=== PATIENT | male | born 1955 | race Caucasian/White ===

== ENCOUNTER 2018-05-30 10:01 | Emergency (ER) | payer OTHER ==
[2018-05-30 10:58] LABS: Absolute Lymphocytes (CBC) 3.5 K/uL (0.7-4.9); Absolute Monocytes 0.8 K/uL (0.1-1.3); Absolute Neutrophil 9.2 K/uL (1.8-8.0); Basophils % 0.8 % (0-1.3); Eosinophils % 1.2 % (0-4.4); Lymphocytes % 25.3 % (15.3-44.8); MCH 30.4 pg (27.0-35.0); MPV 8.8 fL (7.6-11.3); Monocytes % 5.8 % (3.3-12.3); RBC Red Blood Cell Count 5.52 M/uL (4.33-5.43)
[2018-05-30 11:03] LABS: Protime INR 1.05
[2018-05-30] MEDS ORDERED: ASPIRIN 81 MG CHEWABLE TABLET ONE (11:04)
[2018-05-30 11:20] LABS: Urine Blood TRACE (NEG); Urine Glucose NEGATIVE (NEG); Urine Protein 1+ (NEG); Urine pH 5.5 (5.0-7.0)
[2018-05-30 11:24] LABS: ALT/SGPT 33 U/L (12-78); AST/SGOT 23 U/L (15-37); Alkaline Phosphatase 75 U/L (45-117); BUN Blood Urea Nitrogen 15 mg/dL (7-18); Bicarbonate 27 mmol/L (21-32); Bilirubin Direct 0.1 mg/dL (0-0.2); Bilirubin Total 0.5 mg/dL (0.2-1.0); Glucose Level 108 mg/dL (74-106); Magnesium 2.4 mg/dL (1.8-2.4); NT PRO-BNP 11 pg/mL (<125); Potassium 3.7 mmol/L (3.5-5.1); Protein, Total 7.6 g/dL (6.4-8.2); Sodium Level 140 mmol/L (136-145); Troponin (Emerg Dept Use Only) < 0.02 ng/mL (0.0-0.045)
--- NOTE | 2018-05-30 12:24 | RAD REPORT ---
EXAM DESCRIPTION: RAD - Chest Single View - 05/30/2018 11:27 am CLINICAL HISTORY: CHEST PAIN Chest pain. COMPARISON: CHEST SINGLE VIEW dated 03/19/2009 FINDINGS: Portable technique limits examination quality. The lungs are grossly clear. The heart is normal in size. No displaced fractures. IMPRESSION: No acute intrathoracic process suspected.
--- NOTE | 2018-05-30 12:24 | EDPHYS ---
Physician Documentation [facility] Name: Hamilton Phan Age: 62 yrs Sex: Male : 1955 Arrival Date: 05/30/2018 Time: 10:02 Bed 15 Private MD: Yosi Quintero ED Physician Pavan Mcarthur HPI: 05/30 10:52 This 62 yrs old Male presents to ER via Wheelchair with complaints of Chest ma2 Tightness, Weakness, Headache. 10:52 The patient or guardian reports chest pain that is located primarily in the substernal ma2 area. Onset: suddenly, 1 hour(s) ago. The pain does not radiate. The chest pain is described as a heaviness, squeezing. Duration: The patient or guardian reports a single episode. Severity of pain: At its worst the pain was moderate in the emergency department the pain is unchanged. The patient has experienced a previous episode. Historical: - Allergies: 10:11 Bees; aj1 10:11 Wasps; aj1 - Home Meds: 10:11 blood pressure medication [Active]; aj1 - PMHx: 10:11 Hypertension; Hypothyroidism; aj1 - PSHx: 10:11 None; aj1 - Immunization history:: Flu vaccine is not up to date. - Social history:: Smoking status: Patient uses tobacco products, smokes one-half pack cigarettes per day, Patient/guardian denies using alcohol, street drugs, The patient lives with family. - Ebola Screening: : Patient denies travel to an Ebola-affected area in the 21 days before illness onset. - Family history:: not pertinent, pertinent for. ROS: 10:52 Constitutional: Negative for fever, chills, and weight loss, Respiratory: Negative for ma2 shortness of breath, cough, wheezing, and pleuritic chest pain, Back: Negative for injury and pain, MS/Extremity: Negative for injury and deformity. 10:52 Cardiovascular: Positive for chest pain, Negative for edema, palpitations, paroxysmal nocturnal dyspnea. Exam: 10:52 Constitutional: This is a well developed, well nourished patient who is awake, alert, ma2 and in no acute distress. Head/Face: Normocephalic, atraumatic. Chest/axilla: Normal chest wall appearance and motion. Nontender with no deformity. No lesions are appreciated. Cardiovascular: Regular rate and rhythm with a normal S1 and S2. No gallops, murmurs, or rubs. Normal PMI, no JVD. No pulse deficits. Respiratory: Lungs have equal breath sounds bilaterally, clear to auscultation and percussion. No rales, rhonchi or wheezes noted. No increased work of breathing, no retractions or nasal flaring. Abdomen/GI: Soft, non-tender, with normal bowel sounds. No distension or tympany. No guarding or rebound. No evidence of tenderness throughout. Vital Signs: 10:11 BP 129 / 99; Pulse 78; Resp 18; Temp 97.5; Pulse Ox 97% on R/A; Weight 104.33 kg (R); aj1 Height 6 ft. 4 in. (193.04 cm) (R); Pain 3/10; 11:03 BP 117 / 82; Pulse 66; Resp 14; Pulse Ox 100% ; Pain 6/10; ch 11:36 BP 114 / 81; Pulse 62; Resp 18; Temp 97.7; Pulse Ox 99% on R/A; Pain 3/10; ch 13:21 BP 115 / 92; Pulse 63; Resp 14; Temp 97.9; Pulse Ox 99% on R/A; Pain 3/10; ch 14:02 BP 129 / 90 Supine; Pulse 60; Resp 17; Pulse Ox 97% on R/A; mh5 14:04 BP 136 / 99 Sitting; Pulse 83; Resp 15; Pulse Ox 98% on R/A; mh5 14:06 BP 139 / 99 Standing; Pulse 62; Resp 18; Pulse Ox 97% on R/A; mh5 14:34 BP 124 / 62; Pulse 65; Resp 14; Temp 98.3; Pulse Ox 99% on R/A; Pain 0/10; ch 10:11 Body Mass Index 28.00 (104.33 kg, 193.04 cm) aj1 MDM: 10:18 Patient medically screened. ma2 10:52 Differential diagnosis: acute pericarditis, coronary artery disease chest wall pain, ma2 congestive heart failure stable angina. 12:22 HEART Score: Total Score =. The patient was given aspirin in the Emergency Department. ma2 WAYLON Risk Score: TOTAL SCORE = 3. Data reviewed: vital signs, nurses notes. Counseling: I had a detailed discussion with the patient and/or guardian regarding: the historical points, exam findings, and any diagnostic results supporting the discharge/admit diagnosis, the presence of at least one elevated blood pressure reading (>120/80) during this emergency department visit, the need for further work-up and treatment in the hospital. ED course: accepted by dr. lovell . 14:20 ED course: patient is seen by Dr. Villalobos kettle girl and dr. lovell hospitalist and ma both recommend discharging him home, with f/u with dr. villalobos as he had normal stress test 3 days ago . 05/30 10:31 Order name: Basic Metabolic Panel; Complete Time: 12:10 ma2 05/30 10:31 Order name: CBC with Diff; Complete Time: 12:10 ma2 05/30 10:31 Order name: LFT's; Complete Time: 12:10 ma2 05/30 10:31 Order name: Magnesium; Complete Time: 12:10 ma2 05/30 10:31 Order name: NT PRO-BNP; Complete Time: 12:10 ma2 05/30 10:31 Order name: PT-INR; Complete Time: 12:10 ma2 05/30 10:31 Order name: Troponin (emerg Dept Use Only); Complete Time: 12:10 ma2 05/30 10:31 Order name: XRAY Chest (1 view); Complete Time: 12:52 ma2 05/30 10:31 Order name: EKG; Complete Time: 10:32 ma2 05/30 11:05 Order name: Urine Dipstick--Ancillary (enter results) bd 05/30 11:05 Order name: Urine Dipstick-Ancillary; Complete Time: 12:10 EDMS 05/30 10:31 Order name: Cardiac monitoring; Complete Time: 11:03 ma2 05/30 10:31 Order name: EKG - Nurse/Tech; Complete Time: 11:03 ma2 05/30 10:31 Order name: IV Saline Lock; Complete Time: 11:03 ma2 05/30 10:31 Order name: Labs collected and sent; Complete Time: 11:03 ma2 05/30 10:31 Order name: O2 Per Protocol; Complete Time: 11:03 ma2 05/30 10:31 Order name: O2 Sat Monitoring; Complete Time: 11:03 ma2 05/30 14:02 Order name: Orthostatic Blood Pressure; Complete Time: 14:21 Administered Medications: 10:45 Drug: Aspirin Chewable Tablet 324 mg Route: PO; 11:08 Follow up: Response: No adverse reaction; Marked relief of symptoms ch 12:56 Drug: Tylenol 1000 mg Route: PO; ch 12:56 Follow up: Response: No adverse reaction; Marked relief of symptoms 13:19 Drug: NS 0.9% 1000 ml Route: IV; Rate: 1 bolus; Site: right forearm; 14:02 Follow up: IV Status: Completed infusion; IV Intake: 1000ml Disposition: 05/30/18 14:22 Discharged to Home. Impression: Chest pain, unspecified. - Condition is Stable. - Medication Reconciliation Form, Thank You Letter, Antibiotic Education, Prescription Opioid Use form. - Follow up: Private Physician; When: Tomorrow; Reason: Continuance of care. Signatures: Dispatcher [employer] EDMS Stephanie Mock RN RN Meghan Wong RN RN 1 Ambar Medina RN RN dw Alzahri, Mohammad, MD MD ma2 Corrections: (The following items were deleted from the chart) 12:45 12:23 Hospitalization Ordered by Malathi Lovell MD for Observation. Preliminary diagnosis dw is Chest pain, unspecified. Bed requested for Telemetry/MedSurg (observation). Status is Observation. Condition is Stable. Problem is new. Symptoms are unchanged. UTI on Admission? No. ma2 14:22 12:45 05/30/2018 12:23 Hospitalization Ordered by Malathi Lovell MD for Observation. ma2 Preliminary diagnosis is Chest pain, unspecified. Bed requested for Telemetry/MedSurg (observation). Status is Observation. Condition is Stable. Problem is new. Symptoms are unchanged. UTI on Admission? No. dw 14:37 14:22 05/30/2018 14:22 Discharged to Home. Impression: Chest pain, unspecified. Condition is Stable. Forms are Medication Reconciliation Form, Thank You Letter, Antibiotic Education, Prescription Opioid Use. Follow up: Private Physician; When: Tomorrow; Reason: Continuance of care. ma2
--- NOTE | 2018-05-30 12:24 | ER ---
Nurse's Notes [facility] Name: Hamilton Phan Age: 62 yrs Sex: Male : 1955 Arrival Date: 05/30/2018 Time: 10:02 Bed 15 Private MD: Yosi Quintero Diagnosis: Chest pain, unspecified Presentation: 05/30 10:06 Presenting complaint: Patient states: He was at work this morning and he started aj1 feeling hot, sweating profusely, feeling light-headed, nauseated., chest tightness and headache. He took his blood pressure and it was 100/62, that was an hour ago, but he isn't feeling any better. Denies SOB. Transition of care: patient was not received from another setting of care. Onset of symptoms was May 30, 2018 at 09:00. Risk Assessment: Do you want to hurt yourself or someone else? Patient reports no desire to harm self or others. Initial Sepsis Screen: Does the patient meet any 2 criteria? No. Patient's initial sepsis screen is negative. Does the patient have a suspected source of infection? No. Patient's initial sepsis screen is negative. Care prior to arrival: None. 10:06 Method Of Arrival: Wheelchair aj1 10:06 Acuity: RONA 3 aj1 Triage Assessment: 10:11 General: Appears in no apparent distress. comfortable, Behavior is calm, cooperative, aj1 appropriate for age. Pain: Complains of pain in forehead and chest Pain currently is 3 out of 10 on a pain scale. Neuro: Level of Consciousness is awake, alert, obeys commands. Neuro: Reports headache. Cardiovascular: Patient's skin is warm and dry. Cardiovascular: Reports chest pain, diaphoresis, lightheadedness, nausea. Respiratory: Airway is patent Respiratory effort is even, unlabored, Respiratory pattern is regular, symmetrical. Historical: - Allergies: 10:11 Bees; aj1 10:11 Wasps; aj1 - Home Meds: 10:11 blood pressure medication [Active]; aj1 - PMHx: 10:11 Hypertension; Hypothyroidism; aj1 - PSHx: 10:11 None; aj1 - Immunization history:: Flu vaccine is not up to date. - Social history:: Smoking status: Patient uses tobacco products, smokes one-half pack cigarettes per day, Patient/guardian denies using alcohol, street drugs, The patient lives with family. - Ebola Screening: : Patient denies travel to an Ebola-affected area in the 21 days before illness onset. - Family history:: not pertinent, pertinent for. Screenin:03 Abuse screen: Denies threats or abuse. Denies injuries from another. Nutritional ch screening: No deficits noted. Tuberculosis screening: No symptoms or risk factors identified. Patient has been NPO before screening. The patient is alert, able to follow commands. The patient does not exhibit slurred or garbled speech The patient is not exhibiting difficulty speaking. The patient does not exhibit difficulty understanding words. The patient is able to swallow own secretions with no drooling or need for suction. Patient tolerated one teaspoon of water. No drooling, immediate coughing, gurgling, or clearing of the throat was noted. The patient tolerated 90mL of water. No drooling, immediate coughing, gurgling, or clearing of the throat was noted. The patient passed the bedside swallow screening. Oral medications may be given as ordered. Contact Physician for further diet orders. Fall Risk None identified. Assessment: 11:03 Reassessment: Patient appears in no apparent distress at this time. Patient and/or ch family updated on plan of care and expected duration. Pain level reassessed. Patient is alert, oriented x 3, equal unlabored respirations, skin warm/dry/pink. General: Appears in no apparent distress. comfortable, Behavior is calm, cooperative, appropriate for age. Pain: Complains of pain in top of head, forehead and chest Pain does not radiate. Pain currently is 7 out of 10 on a pain scale. Pain began suddenly. Neuro: No deficits noted. Level of Consciousness is awake, alert, obeys commands, Oriented to person, place, time, situation, Heating Equipment Installer are equal bilaterally Moves all extremities. Full function Gait is steady, Speech is normal, Facial symmetry appears normal, Facial symmetry: tongue is midline, Pupils are PERRLA, Reports dizziness, headache. Cardiovascular: Reports chest pain, Heart tones S1 S2 present Capillary refill < 3 seconds in bilateral fingers toes Clubbing of nail beds is absent Pulses are all present. Edema is absent. Rhythm is regular. Respiratory: Airway is patent Respiratory effort is even, unlabored, Breath sounds are clear bilaterally. GI: No signs and/or symptoms were reported involving the gastrointestinal system. : No signs and/or symptoms were reported regarding the genitourinary system. Derm: Skin is pink, warm \T\ dry. 11:36 Reassessment: Patient appears in no apparent distress at this time. Patient and/or ch family updated on plan of care and expected duration. Pain level reassessed. Patient is alert, oriented x 3, equal unlabored respirations, skin warm/dry/pink. pt states his headache is improved Patient states feeling better. Patient states symptoms have improved. 12:30 Reassessment: Patient appears in no apparent distress at this time. Patient and/or ch family updated on plan of care and expected duration. Pain level reassessed. Patient is alert, oriented x 3, equal unlabored respirations, skin warm/dry/pink. pt states his head still hurts, mild headache. pt medicated per odres. 13:19 Reassessment: DR. lovell speaks with pt, states to give pt one liter ns bolus, then ch check orthostatics. pt medicated per orders. pt may no be admitted, awaiting final physician decision. 14:02 Reassessment: Patient appears in no apparent distress at this time. Patient and/or ch family updated on plan of care and expected duration. Pain level reassessed. Patient is alert, oriented x 3, equal unlabored respirations, skin warm/dry/pink. 14:34 Reassessment: Patient appears in no apparent distress at this time. Patient and/or ch family updated on plan of care and expected duration. Pain level reassessed. Patient is alert, oriented x 3, equal unlabored respirations, skin warm/dry/pink. Patient states feeling better. Patient states symptoms have improved. Vital Signs: 10:11 BP 129 / 99; Pulse 78; Resp 18; Temp 97.5; Pulse Ox 97% on R/A; Weight 104.33 kg (R); aj1 Height 6 ft. 4 in. (193.04 cm) (R); Pain 3/10; 11:03 BP 117 / 82; Pulse 66; Resp 14; Pulse Ox 100% ; Pain 6/10; ch 11:36 BP 114 / 81; Pulse 62; Resp 18; Temp 97.7; Pulse Ox 99% on R/A; Pain 3/10; ch 13:21 BP 115 / 92; Pulse 63; Resp 14; Temp 97.9; Pulse Ox 99% on R/A; Pain 3/10; ch 14:02 BP 129 / 90 Supine; Pulse 60; Resp 17; Pulse Ox 97% on R/A; mh5 14:04 BP 136 / 99 Sitting; Pulse 83; Resp 15; Pulse Ox 98% on R/A; mh5 14:06 BP 139 / 99 Standing; Pulse 62; Resp 18; Pulse Ox 97% on R/A; mh5 14:34 BP 124 / 62; Pulse 65; Resp 14; Temp 98.3; Pulse Ox 99% on R/A; Pain 0/10; ch 10:11 Body Mass Index 28.00 (104.33 kg, 193.04 cm) aj1 ED Course: 10:02 Patient arrived in ED. rg4 10:02 Yosi Quintero MD is Private Physician. rg4 10:10 Triage completed. aj1 10:11 Arm band placed on Patient placed in an exam room. aj1 10:18 Pavan Mcarthur MD is Attending Physician. ma2 10:32 Stephanie Mock, GELACIO is Primary Nurse. ch 11:03 No apparent distress. Resting quietly. ch 11:03 Patient has correct armband on for positive identification. Placed in gown. Bed in low ch position. Call light in reach. Side rails up X 1. gambling monitor on. Pulse ox on. NIBP on. Door closed. Noise minimized. Lights dimmed. Warm blanket given. 11:03 No provider procedures requiring assistance completed. Missed attempt(s): 22 gauge in ch left antecubital area. Bleeding controlled, band aid applied, catheter tip intact. Patient maintains SpO2 saturation greater than 95% on room air. 11:25 X-ray completed. Portable x-ray completed in exam room. Patient tolerated procedure ml well. 11:27 XRAY Chest (1 view) In Process Unspecified. EDMS 12:23 Malathi Lovell MD is Hospitalizing Provider. ma2 12:56 Urine Dipstick--Ancillary (enter results) Sent. ch 13:21 Inserted saline lock: 22 gauge in right forearm, using aseptic technique. ch 14:34 No apparent distress. Resting quietly. ch 14:34 IV discontinued, intact, bleeding controlled, No redness/swelling at site. Pressure ch dressing applied. Administered Medications: 10:45 Drug: Aspirin Chewable Tablet 324 mg Route: PO; 11:08 Follow up: Response: No adverse reaction; Marked relief of symptoms ch 12:56 Drug: Tylenol 1000 mg Route: PO; 12:56 Follow up: Response: No adverse reaction; Marked relief of symptoms 13:19 Drug: NS 0.9% 1000 ml Route: IV; Rate: 1 bolus; Site: right forearm; ch 14:02 Follow up: IV Status: Completed infusion; IV Intake: 1000ml ch Intake: 14:02 IV: 1000ml; Total: 1000ml. Outcome: 12:23 Decision to Hospitalize by Provider. ma 14:22 Discharge ordered by MD. [facility] 14:34 Discharged to home ambulatory, with family. 14:34 Condition: stable 14:34 Discharge instructions given to patient, family, Instructed on discharge instructions, follow up and referral plans. Demonstrated understanding of instructions, follow-up care. 14:37 Patient left the ED. Signatures: Dispatcher [employer] Stephanie Gomes RN RN Meghan Wong RN RN aj1 Lopez, Melissa ml Garcia, Rubi rg4 Martinez, Maria mh5 Alzahri, Mohammad, MD MD hi2
[2018-05-30] MEDS ORDERED: ACETAMINOPHEN 500 MG TAB ONE (12:57)
--- NOTE | 2018-05-30 12:59 | EKG ---
Test Date: 2018-05-30 Test Time: 10:50:52 Collar Starcher: JOLEEN MEASUREMENT RESULTS: Intervals: Rate: 68 PA: 194 QRSD: 104 QT: 394 QTc: 418 [place]: P: 36 PA: 194 QRS: 62 T: 54 INTERPRETIVE STATEMENTS: Normal sinus rhythm Normal ECG Compared to ECG 02/05/2016 10:10:25 ST (T wave) deviation no longer present Electronically Signed On 05-30-18 12:57:48 CDT by Praful Ragland
[2018-05-30] MEDS ORDERED: NA CHLORIDE 0.9% 1,000 ML ONE (13:14)
[2018-05-30] MEDS ORDERED: NA CHLORIDE 0.9% 1,000 ML IV ONE (13:16)
--- NOTE | 2018-05-30 15:14 | P.PN ---
Date of Service: 05/30/18 Consulted by ER to evaluate patient for admission. Patient is a 62M w PMHx of HTN who had a recent stress test by Dr. Ragland comes in with dizziness, KIRBY, low BP checked at work of 100 systolic. Pt works outdoors in the heat. Patient felt some chest tightness with the dizziness that was transient. His work up in the ER was negative including troponin and EKG. Patients BP w/out IVFs was back up to 125 systolic. His dizziness resolved. I spoke with Dr. Ragland who also evaluated the pt in the ER. He recommended oupt f/up. IVF 1L NS was ordered as well as orthostatic VS check afterwards. PE: VSS, afebrile Gen: AAOx3, NAD CV: S1, S2, RRR Resp: CTA b/l no wheezing GI: abd soft NT/ND +BS Ext: no c/c/e Neuro: nonfocal. Gait nl. Labs reviewed, Trop negative.EKG no acute ST changes A/P Dizziness Dehydration HTN DC home. outpt f/up w PCP and cardiology in 2-3 days per cardiology pt to take his diuretic every other day. Monitor BP prior to taking BP meds. Hold if BP<120 systolic
--- NOTE | 2018-05-31 01:05 | CON ---
Admitted to the emergency room with chest pain to Dr. García's service. I saw the patient in the [facility] room. History Of Present Illness: Mr. Phan is a 62-year-old male, very well known to me. I just saw him y esterday in the office after a month's followup for initiation of Hyzaar for his hypertension. Has h ad a normal heart catheterization about 17 years ago. His last stress test in 2015 was negative. He has a history of hypertension and hypothyroidism. His blood pressure is very labile, had not been v diane tolerant to medicine, and he is not very compliant with it. I started him on Hyzaar about a radha h ago. He has done well with it except that in the morning he was having severe headaches. So, I as ked him to take his medications at night instead, which he has been doing; but apparently, he was wor mariluz in the heat and got very diaphoretic and nauseated, almost syncopal. Blood pressure was 100. Scar argueta started having chest pain after that and came to the emergency room. In the emergency room, his bl ood work was negative except for a white count of 13,000, although denied any symptoms related to an infection. His CPK, MBs, troponin, and EKG were normal. Past Medical History: As stated above. Allergies: NONE. Review of Systems: Negative. Social History: Negative. Family History: Negative. Medications: Include Hyzaar and Synthroid. Physical Examination: General: He was in sinus rhythm. His examination in the emergency room by the staff was normal. Diagnostic Data: Normal. Impression And Plan: Orthostatic hypotension causing all his symptoms, probably secondary to the Hyz aar. He was recommended to go home, increase his salt intake if he ever feels the same way. He is t o start taking the medication every other day or cut down the dose by half, and we will see how he do es. I do not recommend any cardiac workup on him at this time. We will watch his white count as an outpatient. The patient can go home from the emergency room, and he will see me in the office in the near future. CYNTHIA/WILBETRO Voice ID: [id number] Report ID: [id number]
== END 2018-05-30 14:37 | disposition home or self-care (01) ==
LOC: ER 10:01 → UNDOADMOB 12:25 → ERHOLD 12:25
DX: R07.9 Chest pain, unspecified (principal); I10 Essential (primary) hypertension; E03.9 Hypothyroidism, unspecified; F17.210 Nicotine dependence, cigarettes, uncomplicated; Z91.030 Bee allergy status; Z91.038 Other insect allergy status
CPT/HCPCS: 36415; 71045; 80048; 80076; 81003; 83735; 83880; 84484; 85025; 85610; 93005; 96360; 99285; J7030

== ENCOUNTER 2019-03-06 16:15 | Emergency (ER) | payer OTHER ==
--- NOTE | 2019-03-06 18:10 | RAD REPORT ---
EXAM DESCRIPTION: CT - Head Brain Wo Cont - 03/06/2019 6:03 pm CLINICAL HISTORY: Persistent headache following trauma several days earlier COMPARISON: CT January 2016 TECHNIQUE: Axial 5 mm thick images of the head were obtained without IV contrast. All CT scans are performed using dose optimization technique as appropriate and may include automated exposure control or mA/KV adjustment according to patient size. FINDINGS: No intracranial hemorrhage, mass, edema or shift of mid-line structures. No acute infarcti on changes seen. No abnormal extra-axial fluid collections. Ventricles are normal. Mastoid air cells are clear. No air-fluid level in the paranasal sinuses. Mucosal thickening or reten tion cyst present along the floor of the left maxillary sinus. No acute bony findings. IMPRESSION: Negative non-contrast CT head examination for acute finding.
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
== END 2019-03-06 18:33 | disposition home or self-care (01) ==
LOC: ER 16:15
DX: F07.81 Postconcussional syndrome (principal); I10 Essential (primary) hypertension; Z91.030 Bee allergy status; Z91.038 Other insect allergy status
CPT/HCPCS: 70450; 99283

== ENCOUNTER 2021-04-22 21:39 | Emergency (ER) | payer OTHER ==
--- OUTSIDE RECORDS SUMMARY | 2021-04-22 21:41 | XMS REPORT | Continuity of Care Document ---
:1955 Author Organization [facility] t Address [address] [place] [address] Care Team Providers Name Role Phone Jameel Cooper MD Attending Clinician Lona CUELLO Attending Clinician Doctor Unassigned, Name Attending Clinician Unavailable Jameel Cooper MD Admitting Clinician Problems This patient has no known problems. Allergies, Adverse Reactions, Alerts This patient has no known allergies or adverse reactions. Medications This patient has no known medications. Procedures This patient has no known procedures. Encounters Start End Encounter Admission Attending Care Care Encounter Source Date/Time Date/Time Type Type Clinicians Facility Department ID 2019-05-09 2019-05-09 [facility] [id number] 08:19:00 12:10:00 Encounter [place] [facility] [place] [id number] [place] [id number] Surgical [id number] [place] 071 2019-05-09 2019-05-09 Anesthesia [facility] [id number] 09:43:00 10:57:00 [place] [id number] [place] [id number] Surgical [id number] [place] 020 2019-05-09 2019-05-09 Orders Doctor [place] [id number] 00:00:00 00:00:00 Only UnassignedLING [id number] [place] [facility] [id number] Results This patient has no known results.
--- NOTE | 2021-04-23 01:57 | ER ---
Nurse's Notes [facility] Name: Hamilton Phan Age: 65 yrs Sex: Male : 1955 Arrival Date: 04/22/2021 Time: 21:44 Bed DX1 Private MD: Braden Barber R Diagnosis: Trasient hypotension Presentation: 04/22 22:38 Chief complaint: Patient states: Pt stated, "I've had low BP for several days. This kg morning it was after my meds it was 90s /60s then I took it again it was 70s/50s and going down down. I just got out of the hospital Tuesday in [place] for TIA I had drooping on my right side of face and numbness in right arm, right leg, slurred speech. ". Coronavirus screen: Client denies travel out of the [place] in the last 14 days. At this time, unable to obtain information related to travel outside the [place] At this time, the client does not indicate any symptoms associated with coronavirus-19. Ebola Screen: Patient negative for fever greater than or equal to 101.5 degrees Fahrenheit, and additional compatible Ebola Virus Disease symptoms Patient denies exposure to infectious person. Patient denies travel to an Ebola-affected area in the 21 days before illness onset. Initial Sepsis Screen: Does the patient meet any 2 criteria? No. Patient's initial sepsis screen is negative. Does the patient have a suspected source of infection? No. Patient's initial sepsis screen is negative. Risk Assessment: Do you want to hurt yourself or someone else? Patient reports no desire to harm self or others. Onset of symptoms was April 22, 2021 at 09:30. 22:38 Method Of Arrival: Ambulatory kg 22:38 Acuity: RONA 3 kg Triage Assessment: 22:51 General: Appears in no apparent distress. Behavior is calm, cooperative, appropriate kg for age, quiet. Pain: Complains of pain in face. Historical: - Allergies: 22:51 Bees; kg 22:51 Wasps; kg - Home Meds: 22:51 losartan 100 mg oral tab 1 tab once daily [Active]; hydrochlorothiazide 25 mg Oral tab kg 1 tab once daily [Active]; - PMHx: 22:51 Hypertension; Hypothyroidism; Hep C- treat and cured; kg - PSHx: 22:51 Back Sx; kg - Immunization history:: Adult Immunizations not up to date, Client reports having NOT received the Covid vaccine. - Social history:: Smoking status: Patient reports the use of cigarette tobacco products, smokes one pack cigarettes per day. Patient uses alcohol, occasionally. Screenin:54 Abuse screen: Denies threats or abuse. Denies injuries from another. Nutritional kg screening: No deficits noted. Tuberculosis screening: No symptoms or risk factors identified. Fall Risk None identified. Assessment: 04/23 01:56 Reassessment: pt choose not to stay after speaking to ED provider pt left the ED. bb Vital Signs: 04/22 22:38 BP 111 / 80; Pulse 97; Resp 20; Temp 99.5; Pulse Ox 96% on R/A; Weight 104.33 kg (R); kg Height 6 ft. 4 in. (193.04 cm); Pain 1/10; 22:38 Body Mass Index 28.00 (104.33 kg, 193.04 cm) kg ED Course: 21:44 Patient arrived in ED. mr 21:44 Braden Barber MD is Private Physician. mr 22:51 Triage completed. kg 22:51 Arm band placed on left wrist. kg 22:54 Patient has correct armband on for positive identification. kg 23:23 XRAY Chest (1 view) In Process Unspecified. EDMS 04/23 01:43 Boyd Metzger MD is Attending Physician. pkl 02:13 Praful Ragland MD is Referral Physician. pkl Administered Medications: No medications were administered Outcome: 01:57 Patient left the ED. bb 02:14 Discharge ordered by . pkl 02:14 Patient left the ED. bb Signatures: Dispatcher [employer] EDHI Boyd Metzger MD MD pkl Rivera, Mary mr Rosmery Gonzalez, RN RN Debora Carrion RN RN kg Corrections: (The following items were deleted from the chart) 04/22 22:54 22:51 PMHx: Hep C; kg kg
[2021-04-23 02:03] VITALS: BP 111/80; TEMP 99.5; O2SAT 96
--- NOTE | 2021-04-23 02:14 | EDPHYS ---
Physician Documentation [facility] Name: Hamilton Phan Age: 65 yrs Sex: Male : 1955 Arrival Date: 04/22/2021 Time: 21:44 Bed DX1 Private MD: Braden Barber R ED Physician Boyd Metzger HPI: 04/23 01:57 This 65 yrs old Male presents to ER via Ambulatory with complaints of Low BP. pkl 01:57 Onset: The symptoms/episode began/occurred 3 day(s) ago. Patient said he took his old pkl BP medication earlier this morning and noticed his BP keep dropping. Patient said he got out of the hospital last Tuesday in [place] for TIA. Said he had right facial droop, numbness right arm and right leg, and slurred speech. Symptoms have all resolved. His BP is now back to normal. Historical: - Allergies: 04/22 22:51 Bees; kg 22:51 Wasps; kg - Home Meds: 22:51 losartan 100 mg oral tab 1 tab once daily [Active]; hydrochlorothiazide 25 mg Oral tab kg 1 tab once daily [Active]; - PMHx: 22:51 Hypertension; Hypothyroidism; Hep C- treat and cured; kg - PSHx: 22:51 Back Sx; kg - Immunization history:: Adult Immunizations not up to date, Client reports having NOT received the Covid vaccine. - Social history:: Smoking status: Patient reports the use of cigarette tobacco products, smokes one pack cigarettes per day. Patient uses alcohol, occasionally. ROS: 04/23 01:57 Eyes: Negative for injury, pain, redness, and discharge, ENT: Negative for injury, pkl pain, and discharge, Neck: Negative for injury, pain, and swelling, Cardiovascular: Negative for chest pain, palpitations, and edema, Respiratory: Negative for shortness of breath, cough, wheezing, and pleuritic chest pain, Abdomen/GI: Negative for abdominal pain, nausea, vomiting, diarrhea, and constipation, Back: Negative for injury and pain, : Negative for injury, bleeding, discharge, and swelling, MS/Extremity: Negative for injury and deformity, Skin: Negative for injury, rash, and discoloration. Neuro: Negative for altered mental status, loss of consciousness, numbness, seizure activity, speech changes. Exam: 01:57 Head/Face: Normocephalic, atraumatic. Eyes: Pupils equal round and reactive to light, pkl extra-ocular motions intact. Lids and lashes normal. Conjunctiva and sclera are non-icteric and not injected. Cornea within normal limits. Periorbital areas with no swelling, redness, or edema. ENT: Nares patent. No nasal discharge, no septal abnormalities noted. Tympanic membranes are normal and external auditory canals are clear. Oropharynx with no redness, swelling, or masses, exudates, or evidence of obstruction, uvula midline. Mucous membranes moist. Neck: Trachea midline, no thyromegaly or masses palpated, and no cervical lymphadenopathy. Supple, full range of motion without nuchal rigidity, or vertebral point tenderness. No Meningismus. Chest/axilla: Normal chest wall appearance and motion. Nontender with no deformity. No lesions are appreciated. Cardiovascular: Regular rate and rhythm with a normal S1 and S2. No gallops, murmurs, or rubs. Normal PMI, no JVD. No pulse deficits. Respiratory: Lungs have equal breath sounds bilaterally, clear to auscultation and percussion. No rales, rhonchi or wheezes noted. No increased work of breathing, no retractions or nasal flaring. Abdomen/GI: Soft, non-tender, with normal bowel sounds. No distension or tympany. No guarding or rebound. No evidence of tenderness throughout. Back: No spinal tenderness. No costovertebral tenderness. Full range of motion. Skin: Warm, dry with normal turgor. Normal color with no rashes, no lesions, and no evidence of cellulitis. MS/ Extremity: Pulses equal, no cyanosis. Neurovascular intact. Full, normal range of motion. Neuro: Awake and alert, GCS 15, oriented to person, place, time, and situation. Cranial nerves II-XII grossly intact. Motor strength 5/5 in all extremities. Sensory grossly intact. Cerebellar exam normal. Normal gait. Vital Signs: 04/22 22:38 BP 111 / 80; Pulse 97; Resp 20; Temp 99.5; Pulse Ox 96% on R/A; Weight 104.33 kg (R); kg Height 6 ft. 4 in. (193.04 cm); Pain 1/10; 22:38 Body Mass Index 28.00 (104.33 kg, 193.04 cm) kg MDM: 04/23 01:43 Patient medically screened. pkl 01:57 Data reviewed: vital signs, nurses notes, EKG, radiologic studies, plain films. ED pkl course: Patient asymptomatic. Patient said he has appointment with Dr. Ragland ( Prosthetics Lab Technician ) today.. 04/22 22:55 Order name: XRAY Chest (1 view) kg 04/22 22:55 Order name: EKG; Complete Time: 22:56 kg 04/22 22:55 Order name: Cardiac monitoring kg 04/22 22:55 Order name: EKG - Nurse/Tech; Complete Time: 01:28 kg 04/22 22:55 Order name: IV Saline Lock kg 04/22 22:55 Order name: Labs collected and sent kg 04/22 22:55 Order name: O2 Per Protocol kg 04/22 22:55 Order name: O2 Sat Monitoring kg Administered Medications: No medications were administered Disposition Summary: 04/23/21 02:14 Discharge Ordered Location: Home pkl Problem: new pkl Symptoms: have improved pkl Condition: Stable pkl Diagnosis - Trasient hypotension pkl Followup: pkl - With: Praful Ragland MD - When: Today - Reason: Re-evaluation by your physician Forms: - Medication Reconciliation Form pkl - Thank You Letter pkl - Antibiotic Education pkl - Prescription Opioid Use pkl Signatures: Dispatcher [employer] EDMS Boyd Metzger MD MD pkl Rosmery Gonzalez RN RN Debora Carrion RN RN kg Corrections: (The following items were deleted from the chart) 04/22 22:54 22:51 PMHx: Hep C; kg kg 04/23 02:10 01:57 after being seen by provider huy pksalomon 02:10 01:57 unknown huy pkl 02:12 02:11 post triage evaluation and consult huy son
--- NOTE | 2021-04-23 08:48 | RAD REPORT ---
EXAM DESCRIPTION: RAD - Chest Single View - 04/22/2021 11:23 pm CLINICAL HISTORY: CHEST PAIN Chest pain. COMPARISON: Chest Single View dated 05/30/2018; CHEST SINGLE VIEW dated 03/19/2009 FINDINGS: Portable technique limits examination quality. Interstitial markings are mildly prominent which may indicate mild interstitial pulmonary edema or vi ral infection. The heart is normal in size. No displaced fractures.
== END 2021-04-23 02:14 | disposition home or self-care (01) ==
LOC: ER 21:39
DX: I95.89 Other hypotension (principal); I10 Essential (primary) hypertension; E03.9 Hypothyroidism, unspecified; F17.210 Nicotine dependence, cigarettes, uncomplicated; Z91.038 Other insect allergy status
CPT/HCPCS: 71045; 93005; 99282

== ENCOUNTER 2021-04-27 06:32 | Observation (INO) | payer OTHER ==
[2021-04-24 11:42] LABS: Absolute Lymphocytes (CBC) 2.5 K/uL (0.7-4.9); Basophils % 0.6 % (0-1.3); Hematocrit 46.5 % (39.6-49.0); Lymphocytes % 19.8 % (15.3-44.8); MPV 8.6 fL (7.6-11.3); RBC Red Blood Cell Count 5.37 M/uL (4.33-5.43)
[2021-04-24 11:46] LABS: Protime INR 1.1
[2021-04-27] MEDS ORDERED: HEPA 1000U/500MLS 1,000 UNIT/500 ML BAG IV ONE (07:09)
[2021-04-27] MEDS ORDERED: LIDOCAINE 1% 20 ML MDV ONE (07:09)
[2021-04-27] MEDS ORDERED: NA CHLORIDE 0.9% 500 ML ONE (07:12)
[2021-04-27 07:32] LABS: Potassium 3.6 mmol/L (3.5-5.1)
[2021-04-27] MEDS ORDERED: NA CHLORIDE 0.9% 0 ML ONE (07:33)
[2021-04-27] MEDS ORDERED: MIDAZOLAM HCL 5 ML ONE (07:33)
[2021-04-27] MEDS ORDERED: FENTANYL CITR 100 MCG/2 ML ONE (07:33)
[2021-04-27] MEDS ORDERED: ATROPINE SULF 1 MG/10 ML SYR IV ONE (07:33)
--- NOTE | 2021-04-27 09:49 | OP ---
Date of Procedure: 04/27/2021 Surgeon: Praful Ragland MD Oral And Maxillofacial Surgeon: Mr. Nino Dickey. Indication: Mr. Phan is a 65-year-old with history of dyslipidemia, recent TIAs, unstable angina sym ptoms followed by syncope, borderline labile hypertension. Procedure In Detail: Brought to the operations label clerk today as an outpatient on 04/27/2021, prepped and drape d in the routine sterile fashion, given Versed and fentanyl for sedation. A 6-[place] sheath introduc ed in the right common femoral artery successfully. Angiography there was normal. Angio-Seal was us ed to close the case. A JL4 catheter was introduced and the left main coronary had a very short left main, almost dual ostium. He had some plaquing in the circumflex and OM. He had a 20% proximal LAD stenosis with some significant calcification in that area. The RCA was large, very dominant, and ewing d some mild plaquing. There were no complications. The patient tolerated the procedure well. Blood Loss: 5 mL. Postoperative Diagnosis: Mild coronary artery disease. Plan: Medical therapy with aspirin and statin. The patient will go home today after 2 hours of bedr est. Anesthesia: Total conscious sedation 45 minutes. CYNTHIA/WILBERTO Voice ID: [id number] Report ID: [id number]
--- OUTSIDE RECORDS SUMMARY | 2021-04-27 13:49 | XMS REPORT | Continuity of Care Document ---
:1955 Author Organization [facility] t Address [address] [place] [address] Care Team Providers Name Role Phone Jameel [...] Type Clinicians Facility Department ID 2019-05-09 2019-05-09 [facility] [id number] 08:19:00 12:10:00 Encounter [place] [id number] [place] [id number] Surgical [phone] [place] 071 2019-05-09 2019-05-09 Anesthesia [facility] [id number] 09:43:00 10:57:00 [place] [id number] [place] [id number] Surgical [id number] [place] 020 2019-05-09 2019-05-09 Orders Doctor BARRETO [id number] 00:00:00 00:00:00 Only UnassignedLING [id number] [facility] [id number] Results This patient has no known results.
[2021-04-27] MEDS ORDERED: LIDOCAINE 1% MPF 2 ML AMPULE ONE (14:58)
[2021-04-27 16:05] VITALS: O2SAT 97
[2021-04-27] MEDS ORDERED: ACETAMINOPHEN 325 MG TABLET PO PRN (17:00)
[2021-04-27] MEDS ORDERED: NITROGLYCERIN 0.4 MG/TAB SL PRN (17:01)
[2021-04-27] MEDS ORDERED: NA CHLORIDE 0.9% 1,000 ML IV SCH (18:00)
[2021-04-28 09:00] VITALS: BP 170/96; TEMP 97.3
--- NOTE | 2021-04-29 14:43 | HP ---
Date of Admission: 04/27/2021 Reason For Admission: Mr. Phan is a 65-year-old male. He was admitted on 04/27/2021 for possible TI A following a heart catheterization. History Of Present Illness: Mr. Phan is 65, has a history of hypertension, multiple TIAs recently sy mptoms consistent with unstable angina, brought to the [facility] on 04/27/2021 as an outpatient to hav e a catheterization. His catheterization was done and was actually normal. Prior to discharge, the patient could not move his right leg. He was weak. He did not have any aphasia or vision issues, bu t he could not walk, so he was admitted for further evaluation. It is of note that he has had extens kait workup recently with MRI, MRA and CT of his head, carotid Dopplers and echos all of which have be en normal, but this is his fourth episode. He was admitted for neurological consultation and observa tion. Past Medical History: Includes hypertension and TIA. Allergies: NONE. Medications: At home are aspirin and Lipitor. Review of Systems: Negative. Social History: Negative. Family History: Negative. Physical Examination: Vital Signs: Blood pressure was 174/99. HEENT: Negative. He was in sinus rhythm. Neck: Supple with no bruit. Chest: Clear. Cardiac: Normal. Abdomen: Benign. Extremities: Revealed no clubbing, cyanosis, or edema. He was focal neurologically with weakness on the right leg. Neurologic: He was alert and oriented x3. Diagnostic Data: All normal. Impression And Plan: This is a patient with hyperlipidemia and hypertension that is very labile, sym ptoms of transient ischemic attack, although he had a very extensive workup. I think we maybe dealin g with other neurological situation, possibly ALS or maybe myasthenia gravis. Neurological consultat ion with the pain. We will start low-dose Cozaar, continue aspirin and Lipitor. I will observe him overnight. CYNTHIA/WILBERTO Voice ID: [id number]
--- NOTE | 2021-04-29 14:43 | DS ---
Date of Discharge: 04/28/2021 Reason For Admission: TIA. Discharge Diagnoses: 1.Hypertension. 2.Transient ischemic attack. 3.Dyslipidemia. Discharge Medications: Aspirin, Lipitor, and Cozaar 50 mg daily. Discharge Instructions: For him to have a low-fat, low-cholesterol diet. Resume normal activities a nd come see me in the office in the next 2 weeks. Hospital Course: Mr. Phan was 65, has had multiple TIA symptoms consistent with unstable angina, bro ught to the research laboratory specialist as an outpatient on 04/27/2021. Had a normal heart catheterization without sign ificant coronary artery disease. Before he left the hospital that day upon discharge, he had ___ episode with weakness of the right leg. He was admitted for workup. Overnight, his symptoms res olved after an hour. He had an extensive neurological workup with MRI and MRA, CT of the head, carot id Dopplers and echos and now catheterization, all of which are normal. The etiology of his TIAs is unknown. Neurological consultation was obtained. The patient will go home on the above medication. Neurology has not seen him before discharge, but they will see him as an outpatient. Other neurolog ical issues such as ALS or myasthenia gravis may be for workup. CYNTHIA/WILBERTO Voice ID: [id number] Report ID: [id number]
== END 2021-04-28 11:20 | disposition home or self-care (01) ==
LOC: CCL 06:32 → INTOOBSV 13:39 → 2ND 13:39
DX: I25.110 Atherosclerotic heart disease of native coronary artery with unstable angina pectoris (principal); G45.9 Transient cerebral ischemic attack, unspecified; I10 Essential (primary) hypertension; E78.5 Hyperlipidemia, unspecified; Z79.82 Long term (current) use of aspirin; Z79.899 Other long term (current) drug therapy; Z20.822 Contact with and (suspected) exposure to COVID-19
CPT/HCPCS: 85025; 80048; 36415 ×2; 85610; 85730; 83880; 93454; U0003; C1893; C1760; J2250; J3010; G0378 ×3; J7040; J7030; J1644; G0379; J0583

== ENCOUNTER 2021-06-19 15:34 | Emergency (ER) | payer OTHER ==
[2021-06-19 16:06] LABS: Absolute Lymphocytes (CBC) 3.2 K/uL (0.7-4.9); Basophils % 1.1 % (0-1.3); Hematocrit 40.2 % (39.6-49.0); Lymphocytes % 23.2 % (15.3-44.8)
[2021-06-19] MEDS ORDERED: NA CHLORIDE 0.9% 1,000 ML ONE (16:17)
[2021-06-19 16:19] LABS: Protime INR 1.03
--- NOTE | 2021-06-19 16:22 | RAD REPORT ---
EXAM DESCRIPTION: CT - Head Brain Wo Cont - 06/19/2021 4:10 pm CLINICAL HISTORY: SYNCOPE Headache, drowsiness COMPARISON: Chest Single View dated 05/23/2021; Chest Single View dated 05/21/2021; Chest Single View dated 02/12/2021; Chest Single View dated 02/11/2021Head Brain Wo Cont dated 03/06/2019; Head Brain Wo Co nt dated 02/05/2016 TECHNIQUE: All CT scans are performed using dose optimization technique as appropriate and may inclu de automated exposure control or mA/KV adjustment according to patient size. FINDINGS: No intracranial hemorrhage, hydrocephalus or extra-axial fluid collection.Small area of hy podensity in the right posterior basal ganglia measuring 8 mm likely represents an old infarct.No are as of brain edema or evidence of midline shift. 28 mm mucous retention cyst is present in the left maxillary antrum. The paranasal sinuses and mastoi ds are otherwise clear. The calvarium is intact. IMPRESSION: No acute intracranial abnormality.
--- NOTE | 2021-06-19 16:27 | RAD REPORT ---
EXAM DESCRIPTION: RAD - Chest Single View - 06/19/2021 4:15 pm CLINICAL HISTORY: syncope Chest pain. COMPARISON: Chest Single View dated 04/22/2021; Chest Single View dated 05/30/2018; CHEST SINGLE VIEW dated 03/19/2009 FINDINGS: Portable technique limits examination quality. Mild interstitial opacities are present bilaterally, unchanged. This may represent mild interstitial pulmonary edema. The heart is normal in size. No displaced fractures.
[2021-06-19 17:07] LABS: ALT/SGPT 29 U/L (12-78); AST/SGOT 20 U/L (15-37); Albumin 3.2 g/dL (3.4-5.0); Alkaline Phosphatase 73 U/L (45-117); BUN Blood Urea Nitrogen 17 mg/dL (7-18); Bicarbonate 22 mmol/L (21-32); Bilirubin Direct 0.1 mg/dL (0-0.2); Bilirubin Total 0.4 mg/dL (0.2-1.0); Glucose Level 119 mg/dL (74-106); NT PRO-BNP 91 pg/mL (<125); Potassium 3.4 mmol/L (3.5-5.1); Protein, Total 6.6 g/dL (6.4-8.2); Sodium Level 144 mmol/L (136-145); Troponin (Emerg Dept Use Only) < 0.02 ng/mL (0.0-0.045)
[2021-06-19 17:46] LABS: Magnesium 2.2 mg/dL (1.8-2.4)
--- NOTE | 2021-06-19 18:21 | RAD REPORT ---
EXAM DESCRIPTION: CT - Chest For Pe Angio - 06/19/2021 6:14 pm CLINICAL HISTORY: Chest pain. syncope COMPARISON: <Comparisons> TECHNIQUE: CT angiogram of the pulmonary arteries was performed with MIP. All CT scans are performed using dose optimization technique as appropriate and may include automated exposure control or mA/KV adjustment according to patient size. FINDINGS: No evidence of pulmonary thromboembolism. No acute aortic finding demonstrated. Mild bilateral ground-glass lung opacities are present. No significant pericardial or pleural fluid. No concerning bony finding. IMPRESSION: No evidence of pulmonary thromboembolism. Mild bilateral ground-glass lung opacities could indicate interstitial pulmonary edema or an underlyi ng viral infection.
--- NOTE | 2021-06-19 18:47 | ER ---
Nurse's Notes [facility] Name: Hamilton Phan Age: 65 yrs Sex: Male : 1955 Arrival Date: 06/19/2021 Time: 15:38 Bed 18 Private MD: Diagnosis: Syncope Presentation: 06/19 15:47 Chief complaint: Patient states: Was at a friends house drinking beer and smoking ss marijuana when he suddenly became unresponsive, pale and diaphoretic. Coronavirus screen: Client denies travel out of the [place] in the last 14 days. Ebola Screen: Patient denies exposure to infectious person. Patient denies travel to an Ebola-affected area in the 21 days before illness onset. Initial Sepsis Screen: Does the patient meet any 2 criteria? No. Patient's initial sepsis screen is negative. Does the patient have a suspected source of infection? No. Patient's initial sepsis screen is negative. Risk Assessment: Do you want to hurt yourself or someone else? Patient reports no desire to harm self or others. Onset of symptoms was June 19, 2021. 15:47 Method Of Arrival: EMS: [facility] ss 15:47 Acuity: RONA 2 ss 15:50 Note EMS reports that BP initially was 100/60 and repeat en route to ED was 110/70. ss Care prior to arrival: IV initiated. 20 GA, in the left antecubital area, Glucose check: 99. Historical: - Allergies: 15:49 Bees; ss 15:49 Wasps; ss - PMHx: 15:49 Hep C- treat and cured; Hypertension; Hypothyroidism; ss - PSHx: 15:49 back sx; ss - Immunization history:: Adult Immunizations up to date. - Social history:: Patient uses street drugs, marijuana, Smoking status: Patient uses street drugs, marijuana, Patient/guardian denies using street drugs. Screenin:15 Abuse screen: Denies threats or abuse. Denies injuries from another. Nutritional tc5 screening: No deficits noted. Tuberculosis screening: No symptoms or risk factors identified. Fall Risk Gait- Weak (10 pts.). Assessment: 16:00 General: Appears in no apparent distress. Behavior is calm, cooperative, appropriate tc5 for age, Possible syncopal episode. NAD at this time.. 17:11 General: Pt states the beginning of the year he was DX with PMA, possible TIA in march tc5 this year that affected rt side, and had another episode similar that right side was affected, states his cardioligist dont think it was a TIA, he thinks it was the PMA and medications he is taking that caused the sx. Pt states today the left side was affected, no deficits noted at this time.. Pain: Denies pain. Neuro: No deficits noted. Cardiovascular: No deficits noted. Rhythm is sinus rhythm. Vital Signs: 17:15 BP 125 / 77; Pulse 77; Resp 15; Pulse Ox 97% ; Pain 0/10; tc5 18:53 BP 124 / 69; Pulse 80; Resp 16; tc5 NIH Stroke Scale Scores: 15:50 NIHSS Score: 0 ss ED Course: 15:38 Patient arrived in ED. ds1 15:42 Matheus Xie PA is PHCP. cp 15:42 Matheus Fajardo MD is Attending Physician. cp 15:49 Triage completed. ss 15:49 Arm band placed on right wrist. ss 15:59 Reshma Crawford, RN is Primary Nurse. tc5 16:10 CT Head Brain wo Cont In Process Unspecified. EDMS 16:15 XRAY Chest (1 view) In Process Unspecified. EDMS 17:16 Inserted saline lock: 20 gauge in left forearm, using aseptic technique. Blood tc5 collected. 18:14 CT Chest For PE Angio In Process Unspecified. EDMS 18:54 No provider procedures requiring assistance completed. IV discontinued, intact, tc5 bleeding controlled, No redness/swelling at site. Pressure dressing applied. Administered Medications: 16:04 Drug: NS 0.9% 1000 ml Route: IV; Rate: 1 bolus; Site: left antecubital; ss 18:56 Follow up: IV Status: Completed infusion tc5 18:40 Drug: Potassium Effervescent Tablet 50 mEq Route: PO; tc5 18:56 Follow up: Response: No adverse reaction tc5 Outcome: 18:46 Discharge ordered by . cp 18:55 Discharged to home tc5 18:55 Condition: stable 18:55 Discharge instructions given to patient. 19:02 Patient left the ED. tc5 NIH Stroke Scale - NIH Stroke Score Date: 06/19/2021 Time: 15:50 Total Score = 0 1a. Level of Consciousness (LOC) - 0(Alert) 1b. Level of Consciousness (LOC) (Month \T\ Age) - 0(Both) 1c. LOC Commands (Open \T\ Closes Eyes/Fishing Vessel Captain) - 0(Both) 2. Best Gaze (Lateral Gaze Paresis) - 0(Normal) 3. Visual Field Loss - 0(No visual loss) 4. Facial Palsy - 0(Normal) 5a. Left Arm: Motor (10-second hold) - 0(No drift) 5b. Right Arm: Motor (10-second hold) - 0(No drift) 6a. Left Leg: Motor (5-second hold - always test supine) - 0(No drift) 6b. Right Leg: Motor (5-second hold - always test supine) - 0(No drift) 7. Limb Ataxia (finger/nose \T\ heel/castrejon - test with eyes open) - 0(Absent) 8. Sensory Loss (pinprick arms/legs/face) - 0(Normal) 9. Best Language: Aphasia (description/naming/reading) - 0(No aphasia) 10. Dysarthria (speech clarity - read or repeat words) - 0(Normal) 11. Extinction and Inattention (visual/tactile/auditory/spatial/personal) - 0(No abnormality) Initials: Signatures: Dispatcher [employer] MINDYMT Grace Miller ds1 Tamiko Mcgregor RN RN ss Matheus Xie PA PA cp Cassaboom, Theresa, GELACIO RN tc5
--- NOTE | 2021-06-19 18:47 | EDPHYS ---
Physician Documentation [facility] Name: Hamilton Phan Age: 65 yrs Sex: Male : 1955 Arrival Date: 06/19/2021 Time: 15:38 Bed 18 Private MD: ED Physician Matheus Fajardo HPI: 06/19 15:55 This 65 yrs old Male presents to ER via EMS with complaints of Syncope. cp 15:55 The patient has experienced syncope, lost consciousness. Onset: The symptoms/episode cp began/occurred 1 hour(s) ago. Duration: This was a single episode. 15:55 Associated injury: The patient did not suffer any apparent associated injury. cp 15:55 Associated signs and symptoms: The patient has no apparent associated signs or symptoms.cp 15:55 Current symptoms: Currently, the patient is not experiencing any symptoms, the patient cp feels back to baseline. Patient reports he was sitting down at friend's home when he suddenly lost consciousness. Patient admits to smoking marijuana and drinking beer prior to event. Denies chest pain and reports having cardiac cath in [place] [address] Ragland. Historical: - Allergies: 15:49 Bees; ss 15:49 Wasps; ss - PMHx: 15:49 Hep C- treat and cured; Hypertension; Hypothyroidism; ss - PSHx: 15:49 back sx; ss - Immunization history:: Adult Immunizations up to date. - Social history:: Patient uses street drugs, marijuana, Smoking status: Patient uses street drugs, marijuana, Patient/guardian denies using street drugs. ROS: 16:00 Constitutional: Negative for chills, fever, poor PO intake. cp 16:00 Cardiovascular: Negative for chest pain, edema, palpitations. cp 16:00 Respiratory: Negative for cough, shortness of breath, wheezing. 16:00 Abdomen/GI: Negative for abdominal pain, nausea, vomiting, and diarrhea, constipation, cp black/tarry stool, rectal bleeding. 16:00 Eyes: Negative for injury, pain, redness, and discharge. cp 16:00 ENT: Negative for ear pain, sore throat, difficulty swallowing, difficulty handling secretions. 16:00 Back: Negative for pain at rest, pain with movement. 16:00 Skin: Negative for cellulitis, rash. 16:00 Neuro: Positive for syncope, Negative for altered mental status, headache, numbness, seizure activity, weakness. 16:00 All other systems are negative. Exam: 15:56 ECG was reviewed by the Attending Physician. cp 16:03 Constitutional: The patient appears in no acute distress, alert, awake, comfortable, cp non-diaphoretic, non-toxic, well developed, well nourished. 16:05 Head/Face: Normocephalic, atraumatic. cp 16:05 Eyes: Periorbital structures: appear normal, Pupils: equal, round, and reactive to cp light and accomodation, Extraocular movements: intact throughout, Conjunctiva: normal, no exudate, no injection, Sclera: no appreciated abnormality, Lids and lashes: appear normal, bilaterally. 16:05 ENT: External ear(s): are unremarkable, Ear canal(s): are normal, clear, TM's: dullness, bilaterally, Nose: is normal, Mouth: Lips: moist, Oral mucosa: pink and intact, moist, Posterior pharynx: Airway: normal, no evidence of obstruction, patent. 16:05 Neck: ROM/movement: is normal, is supple, without pain, no range of motions limitations, no nuchal rigidity. 16:05 Chest/axilla: Inspection: normal, Palpation: is normal, no crepitus, no tenderness. 16:05 Cardiovascular: Rate: normal, Rhythm: regular, Edema: is not appreciated, JVD: is not appreciated. 16:05 Respiratory: the patient does not display signs of respiratory distress, Respirations: normal, no use of accessory muscles, no retractions, labored breathing, is not present, Breath sounds: are clear throughout, no decreased breath sounds, no stridor, no wheezing. 16:05 Abdomen/GI: Inspection: abdomen appears normal, Palpation: abdomen is soft and non-tender, in all quadrants. 16:05 Back: pain, is absent, ROM is normal. 16:05 Skin: cellulitis, is not appreciated, no rash present. 16:05 Neuro: Orientation: to person, place \T\ time. Mentation: is normal, Cerebellar function: is grossly normal, Motor: moves all fours, strength is normal, Sensation: is normal. Vital Signs: 17:15 BP 125 / 77; Pulse 77; Resp 15; Pulse Ox 97% ; Pain 0/10; tc5 18:53 BP 124 / 69; Pulse 80; Resp 16; tc5 NIH Stroke Scale Scores: 15:50 NIHSS Score: 0 ss MDM: 15:46 Patient medically screened. sirena 18:45 Data reviewed: vital signs, nurses notes, lab test result(s), EKG, radiologic studies, cp CT scan, plain films, I have discussed the patient's presentation/case with the attending Emergency Department Physician; and as a result, I will discharge patient. 18:45 Test interpretation: by ED physician or midlevel provider: ECG, plain radiologic cp studies. Counseling: I had a detailed discussion with the patient and/or guardian regarding: the historical points, exam findings, and any diagnostic results supporting the discharge/admit diagnosis, lab results, radiology results, the need for outpatient follow up, a family practitioner, to return to the emergency department if symptoms worsen or persist or if there are any questions or concerns that arise at home. ED course: VSS. Labs, EKG and radiology studies reviewed. Will discharge to home for continued monitoring. Review of records show patient had cardiac cath performed here in March 2021 that was negative for significant cardiac disease. Will discharge to home for continued monitoring. 06/19 15:48 Order name: Basic Metabolic Panel; Complete Time: 17:47 cp 06/19 17:24 Interpretation: Normal except: K 3.4; CL 114; GLUC 119; GFR 57; CA 8.0. cp 06/19 15:48 Order name: CBC with Diff; Complete Time: 17:23 cp 06/19 17:25 Interpretation: Normal except: WBC 14.00; HGB 13.4; NEUT A 9.4. cp 06/19 15:48 Order name: LFT's; Complete Time: 17:47 cp 06/19 17:48 Interpretation: Normal except: ALB 3.2; A/G 0.9. cp 06/19 15:48 Order name: Magnesium; Complete Time: 17:47 cp 06/19 15:48 Order name: NT PRO-BNP; Complete Time: 17:47 cp 06/19 15:48 Order name: PT-INR; Complete Time: 17:23 cp 06/19 15:48 Order name: Troponin (emerg Dept Use Only); Complete Time: 17:47 cp 06/19 15:48 Order name: XRAY Chest (1 view); Complete Time: 17:23 cp 06/19 15:49 Order name: ETOH Level cp 06/19 15:49 Order name: UDS cp 06/19 15:49 Order name: CT Head Brain wo Cont; Complete Time: 17:23 cp 06/19 15:50 Order name: Alcohol Serum/Plasma; Complete Time: 17:50 EDMS 06/19 18:28 Interpretation: Abnormal: ETOH 19. cp 06/19 15:48 Order name: EKG; Complete Time: 15:49 cp 06/19 15:48 Order name: Cardiac monitoring; Complete Time: 15:50 cp 06/19 15:48 Order name: EKG - Nurse/Tech; Complete Time: 15:50 cp 06/19 15:48 Order name: IV Saline Lock; Complete Time: 15:50 cp 06/19 15:48 Order name: Labs collected and sent; Complete Time: 15:59 cp 06/19 15:48 Order name: O2 Per Protocol; Complete Time: 15:50 cp 06/19 15:48 Order name: O2 Sat Monitoring; Complete Time: 15:50 cp 06/19 17:50 Order name: CT Chest For PE Angio; Complete Time: 18:28 cp EC:56 Rate is 86 beats/min. Rhythm is regular. DE interval is normal. QRS interval is cp prolonged at 102 msec. QT interval is normal. T waves are Inverted in leads I, aVL. Interpreted by me. Reviewed by me. Administered Medications: 16:04 Drug: NS 0.9% 1000 ml Route: IV; Rate: 1 bolus; Site: left antecubital; ss 18:56 Follow up: IV Status: Completed infusion tc5 18:40 Drug: Potassium Effervescent Tablet 50 mEq Route: PO; tc5 18:56 Follow up: Response: No adverse reaction tc5 Disposition Summary: 06/19/21 18:46 Discharge Ordered Location: Home cp Problem: new cp Symptoms: have improved cp Condition: Stable cp Diagnosis - Syncope cp Followup: cp - With: Private Physician - When: 2 - 3 days - Reason: Recheck today's complaints Discharge Instructions: - Discharge Summary Sheet cp - Syncope cp - Aspirin and Your Heart cp Forms: - Medication Reconciliation Form cp - Thank You Letter cp - Antibiotic Education cp - Prescription Opioid Use cp NIH Stroke Scale - NIH Stroke Score Date: 06/19/2021 Time: 15:50 Total Score = 0 1a. Level of Consciousness (LOC) - 0(Alert) 1b. Level of Consciousness (LOC) (Month \T\ Age) - 0(Both) 1c. LOC Commands (Open \T\ Closes Eyes/Psychotherapist Counselor) - 0(Both) 2. Best Gaze (Lateral Gaze Paresis) - 0(Normal) 3. Visual Field Loss - 0(No visual loss) 4. Facial Palsy - 0(Normal) 5a. Left Arm: Motor (10-second hold) - 0(No drift) 5b. Right Arm: Motor (10-second hold) - 0(No drift) 6a. Left Leg: Motor (5-second hold - always test supine) - 0(No drift) 6b. Right Leg: Motor (5-second hold - always test supine) - 0(No drift) 7. Limb Ataxia (finger/nose \T\ heel/castrejon - test with eyes open) - 0(Absent) 8. Sensory Loss (pinprick arms/legs/face) - 0(Normal) 9. Best Language: Aphasia (description/naming/reading) - 0(No aphasia) 10. Dysarthria (speech clarity - read or repeat words) - 0(Normal) 11. Extinction and Inattention (visual/tactile/auditory/spatial/personal) - 0(No abnormality) Initials: Addendum: 06/22/2021 10:26 Co-signature as Attending Physician, Matheus Fajardo MD I agree with the [facility] assessment and plan of care. Signatures: Dispatcher [employer] Matheus Feliz MD MD cha Smirch, Shelby, RN RN ss Matheus Xie PA PA cp Cassaboom, Theresa, RN RN tc5 Corrections: (The following items were deleted from the chart) 06/19 17:25 17:24 Normal except: WBC 14.00; HGB 13.4. cp cp 18:09 17:48 Head Angio+CT.RAD.BRZ ordered. EDMS EDMS 18:09 17:48 Neck Angio+CT.RAD.BRZ ordered. EDMS EDMS
[2021-06-19] MEDS ORDERED: POTASSIUM 25 MEQ EFFERV TAB ONE (19:03)
[2021-06-19 19:11] VITALS: O2SAT 97
[2021-06-19 19:12] VITALS: BP 124/69
== END 2021-06-19 19:02 | disposition home or self-care (01) ==
LOC: ER 15:34
DX: R55 Syncope and collapse (principal); I10 Essential (primary) hypertension; Z91.030 Bee allergy status; Z91.038 Other insect allergy status
CPT/HCPCS: 96361; 93005; 85025; 80048; 36415; 80320; 83735; 85610; 80076; 84484; 83880; 70450; 71275; 71045; 96360; 99284; Q9967; J7030

== ENCOUNTER 2024-07-23 10:14 | Day surgery (SDC) | payer OTHER ==
[2024-07-23 10:25] LABS: Absolute Eosinophils 0.1 K/uL (0-0.5); Absolute Monocytes 0.7 K/uL (0.1-1.3); Absolute Neutrophil 7.6 K/uL (1.8-8.0); Basophils % 0.5 % (0-1.3); Eosinophils % 1.1 % (0-4.4); Hematocrit 46.6 % (39.6-49.0); Hemoglobin 15.6 g/dL (13.6-17.9); Lymphocytes % 19.1 % (15.3-44.8); MCH 29.5 pg (27.0-35.0); MCHC 33.5 g/dL (32.0-36.0); MCV 88.1 fL (80-100); MPV 8.6 fL (7.6-11.3); Monocytes % 6.8 % (3.3-12.3); Neutrophils % 72.5 % (41.7-73.7); Nucleated Red Blood Cells % 0.1 % (0-0); Platelets 234 thou/uL (152-406); RBC Red Blood Cell Count 5.29 M/uL (4.33-5.43); Red Cell Distribution Width 13.4 % (12.1-15.2)
[2024-07-23 10:40] LABS: Anion Gap 6.7 mEq/L (5.0-15.0); Potassium 3.7 mEq/L (3.5-5.1)
[2024-07-23] MEDS: Ringers Lactate 1,000 ML IV ONE (10:50)
[2024-07-23] MEDS ORDERED: propofoL 200 MG/20 ML VIAL IV ONE (11:05)
[2024-07-23] MEDS ORDERED: LIDOCAINE 1% MPF 5 ML VIAL ONE (11:05)
[2024-07-23] MEDS ORDERED: SIMETHICONE 40 MG/ 0.6 ML ONE (11:28)
--- NOTE | 2024-07-23 11:59 | EKG ---
Test Date: 2024-07-23 Test Time: 11:09:01 Technical Sales Support Specialist: ABDIRAHMAN MEASUREMENT RESULTS: Intervals: Rate: 69 SD: 174 QRSD: 100 QT: 406 QTc: 435 [place]: P: 9 SD: 174 QRS: 87 T: 27 INTERPRETIVE STATEMENTS: Normal sinus rhythm Normal ECG Compared to ECG 06/19/2021 15:50:06 T-wave abnormality no longer present Prolonged QT interval no longer present Electronically Signed On 07-23-24 11:58:45 [employer] by Neno Mejia
[2024-07-23 13:38] VITALS: TEMP 97.3
[2024-07-23 13:43] VITALS: BP 104/67; O2SAT 96
== END 2024-07-23 13:25 | disposition home or self-care (01) ==
LOC: OR 10:14
PROVIDERS: ATTEND Surgery
PROC: 0DJD8ZZ Inspection of Lower Intestinal Tract, Via Natural or Artificial Opening Endoscopic (ICD-10-PCS; principal; 2024-07-23 13:00)
DX: Z12.11 Encounter for screening for malignant neoplasm of colon (principal); I10 Essential (primary) hypertension; N42.9 Disorder of prostate, unspecified; K64.8 Other hemorrhoids; K57.30 Diverticulosis of large intestine without perforation or abscess without bleeding
CPT/HCPCS: 93005; 85025; 80048; 36415; 45378; J2704; J2003; J7120

== ENCOUNTER 2025-04-09 14:42 | Emergency (ER) | payer OTHER ==
--- OUTSIDE RECORDS SUMMARY | 2025-04-09 14:46 | XMS REPORT | Continuity of Care Document ---
Author Name Unknown Address [address] [facility] [address] [place] [address] [facility] [place] Address [address] [facility] [address] [place] [address] Care Team Providers Care Roll Examiner Name Role Phone MEGA FIELDS Primary Care Physician UnavailKOJO Petersen Attending Clinician Unavailable MOJGAN BENDER Attending Clinician Unavailable MOJGAN BENDER Attending Clinician Unavailable Mojgan Bender DO Attending Clinician [phone] Doctor Unassigned, [place] Attending Clinician U Juan R Gupta MD Attending Clinician [phone] Bala Zamorano CRNA Attending Clinician Juan R Cooper MD Admitting Clinician [phone] Payers Payer Name Policy Type Policy Number Effective Date Expirati on Date Source [employer] [id number] 2022 00:00:00 Allergies, Adverse Reactions, Alerts Allergy Name Allergy Type Status Severity Reaction(s) Onset Date Inactive Date Treating Clinician Comments Source PREDNISO NE DRUG INGREDI Active Other-Cmnt 02-26 00:00: 00 [facility] Predniso ne Propensi ty to adverse reaction s Active Other - See comments 02-26 00:00: 00 TIA [facility] NO KNOWN ALLERGIE S Drug Class Active [facility] Social History Social Habit Start Date Stop Date Quantity Comments Source History of tobacco use Cigarette Smoker [facility] Tobacco use and exposure 2025-02-26 00:00:00 2025-02-26 00:00:00 Smokeless tobacco non-user [facility] Tobacco Comment 2025-02-26 00:00:00 2025-02-26 00:00:00 Stated that he has smoked most of his life.Quit for 10 years. Started back up in 2002. [facility] History of Social function 2023-07-25 00:00:00 2023-07-25 00:00:00 [facility] Exposure to SARS-CoV-2 (event) 2023-01-11 00:00:00 2023-01-21 11:07:00 Not sure [facility] Sex assigned at 1955 00:00:00 1955 00:00:00 [facility] Smoking Status Start Date Stop Date Source Smokes tobacco daily 2025-02-26 00:00:00 [facility] Ex-smoker 2023-07-25 00:00:00 2023-07-25 [facility]00[facility] Medications Ordered Medication Name Filled Medication Name Start Date Stop Date Current Medication? Ordering Clinician Indication Dosage Frequency Signature (SIG) Comments Components Source lisinopril 10 mg tablet 02-26 15:14: 20 Yes 10mg Take 1 tablet by mouth in the morning. [facility] meloxicam 15 mg tablet 02-26 15:14: 20 Yes 15mg Take 1 tablet by mouth in the morning. [facility] amLODIPine 5 mg tablet 02-26 15:14: 20 Yes 5mg Take 1 tablet by mouth in the morning. [facility] losartan 50 mg tablet 2022-08 10:40: 04 Yes 50mg Take 1 tablet by mouth in the morning and 1 tablet in the evening. [facility] amLODIPine 5 mg tablet 2022-08 10:40: 04 Yes 5mg Take 1 tablet by mouth in the morning. [facility] losartan 50 mg tablet 01-21 11:20: 13 Yes 50mg Take 1 tablet by mouth in the morning. [facility] amLODIPine 5 mg tablet 01-21 11:20: 13 Yes 5mg Take 1 tablet by mouth in the morning. [facility] TURMERIC ORAL 01-21 11:15: 40 Yes Take by mouth. [facility] lisinopril 10 mg tablet 01-21 11:15: 40 Yes 10mg Take 1 tablet by mouth in the morning. [facility] meloxicam 15 mg tablet 01-21 11:15: 40 Yes 15mg Take 1 tablet by mouth in the morning. [facility] levoFLOXaci n 500 mg tablet 01-21 00:00: 00 07-25 00:00 :00 No [id number] 500mg Take 1 tablet by mouth every 24 (twenty-fo ur) hours. [facility] lisinopril 10 mg tablet 05-09 12:16: 12 Yes 10mg Take 10 mg by mouth daily. [facility] meloxicam 15 mg tablet 05-09 12:16: 12 Yes 15mg Take 15 mg by mouth daily. [facility] venom-wasp (WASP VENOM INJECTION) 05-09 12:16: 12 Yes Indication s: wasp sting [facility] Vital Signs Vital Name Observation Time Observation Value Comments S ource Systolic blood pressure 2025-02-26 20:17:00 135 mm[Hg] [facility] Diastolic blood pressure 2025-02-26 20:17:00 91 mm[Hg] [facility] Heart rate 2025-02-26 20:17:00 84 /min [facility] Body height 2025-02-26 20:17:00 194.3 cm [facility] Body weight 2025-02-26 20:17:00 98.431 kg [facility] BMI 2025-02-26 20:17:00 26.07 kg/m2 [facility] Oxygen saturation in Arterial blood by Pulse oximetry 2025-02-26 20:17:00 94 /min [facility] Systolic blood pressure 2023-07-25 16:36:00 125 mm[Hg] [facility] Diastolic blood pressure 2023-07-25 16:36:00 79 mm[Hg] [facility] Heart rate 2023-07-25 16:36:00 80 /min [facility] Respiratory rate 2023-07-25 16:36:00 18 /min [facility] Body height 2023-07-25 16:36:00 193 cm [facility] Body weight 2023-07-25 16:36:00 109.77 kg [facility] BMI 2023-07-25 16:36:00 29.46 kg/m2 [facility] Oxygen saturation in Arterial blood by Pulse oximetry 2023-07-25 16:36:00 93 /min [facility] BMI 2023-01-21 16:16:00 27.54 kg/m2 [facility] Oxygen saturation in Arterial blood by Pulse oximetry 2023-01-21 16:16:00 95 /min [facility] Systolic blood pressure 2023-01-21 16:16:00 114 mm[Hg] [facility] Diastolic blood pressure 2023-01-21 16:16:00 79 mm[Hg] [facility] Heart rate 2023-01-21 16:16:00 79 /min [facility] Respiratory rate 2023-01-21 16:16:00 18 /min [facility] Body height 2023-01-21 16:16:00 194.3 cm [facility] Body weight 2023-01-21 16:16:00 103.987 kg [facility] Procedures Procedure Date / Time Performed Performing Clinicia n Source SONI,POST-VOID RES,US,NON-IMAGING 2025-02-26 00:00:00 Kojo Quintana [facility] CONSENT/REFUSAL FOR DIAGNOSIS AND TREATMENT 2023-01-21 16:08:20 Doctor Unassigned, [place] [facility] REFERRAL- REQUEST/RESPONSE 2022-12-30 05:01:00 Doctor Unassigned, [place] [facility] EXTERNAL PROVIDER - ADC REFERRAL 2022-11-22 05:01:00 Doctor Unassigned, [place] [facility] Encounters Start Date/Time End Date/Time Encounter Type Admission Type Attending [facility] Facility Care Department Encounter ID Source 2025-02-26 15:30:00 2025-02-26 16:01:08 Office Visit KOJO [facility] 1.2.840.114 350.1.13.10 [id number] [id number] [facility] 2025-02-26 15:30:00 2025-02-26 15:30:00 Outpatient R KOJO [place] [facility] [id number] [facility] 2023-07-25 10:30:00 2023-07-25 11:08:53 [facility] [id number] [facility] 2023-07-25 10:30:00 2023-07-25 11:08:53 Office Visit Mojgan Bender [facility] 1.2.840.114 350.1.13.10 4.2.7.2.686 [id number] [facility] 2023-01-21 11:30:00 2023-01-21 11:50:07 Office Visit Mojgan Bender [facility] 1.2.840.114 350.1.13.10 4.2.7.2.686 [id number] [facility] 2023-01-21 11:30:00 2023-01-21 11:50:07 Outpatient R MOJGAN BENDER SHIR[facility]rnst [facility] [id number] [facility] 2023-01-21 00:00:00 2023-01-21 00:00:00 Orders Only Doctor Unassigned, [place] [facility] 1.2.840.114 350.1.13.10 4.2.7.2.686 [id number] [facility] 2022-12-30 00:00:00 2022-12-30 00:00:00 Orders Only Doctor Unassigned, [place] [facility] 1.2.840.114 350.1.13.10 4.2.7.2.686 [id number] [facility] 2022-11-22 00:00:00 2022-11-22 00:00:00 Orders Only Doctor Unassigned, [place] [facility] 1.2.840.114 350.1.13.10 4.2.7.2.686 [id number] [facility] 2019-05-09 08:19:00 2019-05-09 12:10:00 Hospital Encounter Juan R Cooper [facility] 1.2.840.114 350.1.13.10 4.2.7.2.686 [id number] 2019-05-09 09:43:00 2019-05-09 10:57:00 Anesthesia Bala Zamorano [facility] 1.2.840.114 350.1.13.10 4.2.7.2.686 [id number] 2019-05-09 00:00:00 2019-05-09 00:00:00 Orders Only Doctor Unassigned, [place] [facility] [id number] 350.1.13.10 4.2.7.2.686 [id number] Results Test Description Test Time Test Comments Results Result Co mments Source [facility]
[2025-04-09] MEDS ORDERED: KETOROLAC 30 MG/ML INJ ONE (16:10)
[2025-04-09] MEDS ORDERED: HYDROCODONE/APAP 5/325 MG TAB ONE (16:11)
[2025-04-09] MEDS ORDERED: CYCLOBENZAPRINE 10 MG TAB ONE (16:11)
--- NOTE | 2025-04-09 17:26 | RAD REPORT ---
EXAMINATION: XR LEFT SHOULDER CLINICAL INDICATION: Male, 69 years old. PAIN TECHNIQUE: Internal and external AP view radiograph of the left shoulder were obtained. COMPARISON: No prior exam. FINDINGS: No evidence of fracture or dislocation. Normal alignment. Mild degenerative changes. No oth er focal bone lesion. Soft tissues are unremarkable. IMPRESSION: No acute or significant abnormalities.
--- NOTE | 2025-04-09 17:27 | RAD REPORT ---
EXAMINATION: XR Elbow Left 3 View CLINICAL INDICATION: Male, 69 years old. PAIN TECHNIQUE: 3 view radiographs of the left elbow were obtained. COMPARISON: No prior exam. FINDINGS: No evidence of fracture or dislocation. Normal alignment. No joint effusion. No evidence of arthropathy. No suspicious focal bone lesion. Soft tissues are unremarkable. IMPRESSION: No acute or significant abnormalities.
--- NOTE | 2025-04-09 17:28 | ER ---
Nurse's Notes [facility] [place] Name: Hamilton Phan Age: 69 yrs Sex: Male : 1955 Arrival Date: 04/09/2025 Time: 14:42 Bed IW1 Private MD: Diagnosis: Pain in left shoulder Presentation: 04/09 14:57 Chief complaint: Patient states: left shoulder pain into left elbow X 2 days. iw Coronavirus screen: At this time, the client does not indicate any symptoms associated with coronavirus-19. Ebola Screen: No symptoms or risks identified at this time. Initial Sepsis Screen: Does the patient meet any 2 criteria? No. Patient's initial sepsis screen is negative. Does the patient have a suspected source of infection? No. Patient's initial sepsis screen is negative. Risk Assessment: Do you want to hurt yourself or someone else? Patient reports no desire to harm self or others. Onset of symptoms was April 07, 2025. 14:57 Method Of Arrival: Ambulatory iw 14:57 Acuity: RONA 3 iw Historical: - Allergies: 14:58 Bees; iw 14:58 Wasps; iw 14:58 Prednisone; iw - PMHx: 14:58 Hypothyroidism; Hypertension; Hep C- treat and cured; iw - PSHx: 14:58 back sx; iw 14:59 Appendectomy; iw - Infectious Disease History:: Denies. - Social history:: Smoking status: Patient reports the use of cigarette tobacco products. Vital Signs: 14:57 BP 161 / 110; Pulse 72; Resp 16; Temp 97.1; Pulse Ox 97% on R/A; Weight 99.79 kg; iw Height 6 ft. 4 in. ; 14:57 Body Mass Index 26.78 (99.79 kg, 193.04 cm) iw ED Course: 14:46 Patient arrived in ED. cj3 14:47 Fausto Garcia [facility]-C [facility] 14:47 Nikhil Peck MD is Attending Physician. dr5 14:58 Triage completed. iw 15:31 Shoulder Left (2 View) XRAY In Process Unspecified. EDMS 15:31 Elbow Left 3 View XRAY In Process Unspecified. EDMS Administered Medications: 16:18 Drug: Cyclobenzaprine PO 10 mg PO once Route: PO; ll1 16:18 Drug: Ketorolac IM 30 mg IM once Route: IM; Site: left vastus lateralis; ll1 16:18 Not Given (Patient Refused; drivingg): hydrocodone-acetaminophen5 mg-325 mg 2 tabs PO ll1 once Outcome: 17:28 Discharge ordered by MD. tai 17:33 Patient left the ED. hb Signatures: Dispatcher [employer] EDMaricel Chaudhary RN RN Aleja Ames RN RN Shilpa Curry RN RN ll1 Fausto Garcia, LAUNCH CHECK OUT-C LAUNCH CHECK OUT-[facility] Alaina Wong cj3 Corrections: (The following items were deleted from the chart) 14:58 14:57 BP 161 / 110; Pulse 72bpm; Resp 16bpm; Pulse Ox 97% RA; Temp 97.1F; iw iw
--- NOTE | 2025-04-09 17:28 | EDPHYS ---
Physician Documentation [facility] Name: Hamilton Phan Age: 69 yrs Sex: Male : 1955 Arrival Date: 04/09/2025 Time: 14:42 Bed IW1 Private MD: ED Physician Nikhil Peck HPI: 04/09 15:19 This 69 yrs old Male presents to ER via Ambulatory with complaints of dr5 Shoulder Pain - LT, Arm Pain - LT. 15:19 The patient or guardian complains of pain. left trapezius. Onset: The symptoms/episode dr5 began/occurred 2 day(s) ago. Modifying factors: The symptoms are aggravated by movement. Patient is a 69-year-old male with history of hypothyroidism, hypertension, hepatitis C that was treated and cured coming in with 2 days of left shoulder and left elbow pain that are not connected. Patient denies radiation from left shoulder down to left elbow. Patient denies trauma, falls. Patient denies heavy lifting or any other cause that could cause left shoulder pain. Patient denies numbness or tingling to left arm. Patient denies decreased range of motion.. Patient reports he was on his way to his primary care doctor today and was not able to be seen by them due to them being too busy. Patient was then recommended to ER for evaluation.. Historical: - Allergies: 14:58 Bees; iw 14:58 Wasps; iw 14:58 Prednisone; iw - PMHx: 14:58 Hypothyroidism; Hypertension; Hep C- treat and cured; iw - PSHx: 14:58 back sx; iw 14:59 Appendectomy; iw - Infectious Disease History:: Denies. - Social history:: Smoking status: Patient reports the use of cigarette tobacco products. ROS: 15:19 Constitutional: as per hpi dr5 Exam: 15:19 Constitutional: This is a well developed, well nourished patient who is awake, alert, dr5 and in no acute distress. Head/Face: Normocephalic, atraumatic. Eyes: Pupils equal round and reactive to light, extra-ocular motions intact. Lids and lashes normal. Conjunctiva and sclera are non-icteric and not injected. Cornea within normal limits. Periorbital areas with no swelling, redness, or edema. Chest/axilla: Normal chest wall appearance and motion. Nontender with no deformity. No lesions are appreciated. Cardiovascular: Regular rate and rhythm with a normal S1 and S2. Normal PMI, no JVD. No pulse deficits. Respiratory: Lungs have equal breath sounds bilaterally, clear to auscultation. No rales, rhonchi or wheezes noted. No increased work of breathing, no retractions or nasal flaring. Abdomen/GI: Soft, non-tender, non-distended Back: No spinal tenderness. No costovertebral tenderness. Full range of motion. Skin: Warm, dry with normal turgor. Normal color with no rashes, no lesions, and no evidence of cellulitis. MS/ Extremity: Pulses equal, no cyanosis. Neurovascular intact. Full, normal range of motion. Tenderness to palpation to left upper back and left shoulder. Patient has complete range of motion of left elbow as well as left shoulder. Neuro: Awake and alert, GCS 15, oriented to person, place, time, and situation. Cranial nerves II-XII grossly intact. Motor strength 5/5 in all extremities. Sensory grossly intact. Cerebellar exam normal. Normal gait. Vital Signs: 14:57 BP 161 / 110; Pulse 72; Resp 16; Temp 97.1; Pulse Ox 97% on R/A; Weight 99.79 kg; iw Height 6 ft. 4 in. ; 14:57 Body Mass Index 26.78 (99.79 kg, 193.04 cm) iw MDM: 14:47 Medical Screening Exam initiated dr5 20:56 Differential diagnosis: Anterior dislocation with fracture, DJD, tendonitis. Data dr5 reviewed: vital signs, nurses notes, radiologic studies, plain films. Consideration of Admission/Observation Escalation of care including admission/observation considered. Admission the patient found to have dislocation open fracture. I considered the following discharge prescriptions or medication management in the emergency department I discussed and recommended Over The Counter medications, Medications were administered in the Emergency Department. See MAR. Care significantly affected by the following chronic conditions: Hypertension, Hypothyroidism. Care significantly affected by the following Social Determinants of Health: Poor access to healthcare and/or lack of insurance, Poor access to transportation, Problems related to employment. Counseling: I had a detailed discussion with the patient and/or guardian regarding the historical points, exam findings, and any diagnostic results supporting the discharge/admit diagnosis, the presence of at least one elevated blood pressure reading (>120/80) during this emergency department visit, radiology results, the need for outpatient follow up, for definitive care, a family practitioner, to return to the emergency department if symptoms worsen or persist or if there are any questions or concerns that arise at home. Medication response: Cyclobenzaprine, Toradol. Response to treatment: the patient's symptoms have markedly improved after treatment. Special discussion: I have referred the patient to see his PCP for further evaluation of high blood pressure. I discussed with the patient/guardian in detail that at this point there is no indication for admission to the hospital. It is understood, however, that if the symptoms persist or worsen the patient needs to return immediately for re-evaluation. Based on the history and exam findings, there is no indication for further emergent testing or inpatient evaluation. I discussed with the patient/guardian the need to see the orthopedic surgeon for further evaluation of the symptoms. 04/09 15:00 Order name: Shoulder Left (2 View) XRAY; Complete Time: 17:27 dr5 04/09 15:00 Order name: Elbow Left 3 View XRAY; Complete Time: 17:30 dr5 Administered Medications: 16:18 Drug: Cyclobenzaprine PO 10 mg PO once Route: PO; ll1 16:18 Drug: Ketorolac IM 30 mg IM once Route: IM; Site: left vastus lateralis; ll1 16:18 Not Given (Patient Refused; drivingg): hydrocodone-acetaminophen5 mg-325 mg 2 tabs PO ll1 once Disposition Summary: 04/09/25 17:28 Discharge Ordered Notes: Location: Home dr5 Condition: Stable dr5 Diagnosis - Pain in left shoulder dr5 Followup: dr5 - With: Emergency Department - When: As needed - Reason: Worsening of condition Followup: dr5 - With: Private Physician - When: 1 - 2 days - Reason: Recheck today's complaints, Continuance of care, Re-evaluation by your physician Discharge Instructions: - Discharge Summary Sheet dr5 - Musculoskeletal Pain dr5 - Shoulder Pain dr5 Forms: - Medication Reconciliation Form dr5 - Patient Portal Instructions dr5 - Leadership Thank You Letter dr5 Prescriptions: - Ibuprofen 800 mg Oral Tablet - take 1 tablet ORAL route every 12 hours As needed take with food; 20 tablet; dr5 Refills: 0, Product Selection Permitted - Cyclobenzaprine 10 mg Oral Tablet - take 1 tablet ORAL route every 8 hours As needed; 30 tablet; Refills: 0, dr5 Product Selection Permitted Signatures: Dispatcher [employer] Maricel Pop, RN RN iw Shilpa Curry RN RN ll1 Fausto Garcia, MEDICAL CLAIMS ANALYST-C MEDICAL CLAIMS ANALYST-Cdr5
== END 2025-04-09 17:33 | disposition home or self-care (01) ==
LOC: ER 14:42 → SUPCPDRO 14:42 → ER 17:33
DX: M25.512 Pain in left shoulder (principal); Z72.0 Tobacco use
CPT/HCPCS: 96372; 99284

== ENCOUNTER 2025-04-12 08:42 | Emergency (ER) | payer OTHER ==
--- OUTSIDE RECORDS SUMMARY | 2025-04-12 08:46 | XMS REPORT | Continuity of Care Document ---
Author Name Unknown Address [address] [facility] [address] [place]. [address] [place] [address] [facility] [place] Address [address] [facility] [place]. [address] [place] [address] Care Team Providers Care Travel Manager Name Role Phone MEGA FIELDS Primary Care Physician UnavailKOJO Petersen Attending Clinician Unavailable MOJGAN BENDER Attending Clinician Unavailable MOJGAN BENDER Attending Clinician Unavailable Mojgan Bender DO Attending Clinician Doctor Unassigned, [place] Attending Clinician U Juan R Gupta MD Attending Clinician [phone] Bala Zamorano CRNA Attending Clinician [phone] Juan R Cooper MD Admitting Clinician [phone] Payers Payer Name Policy Type Policy Number Effective Date Expirati on Date Source [employer] [id number] 2022 00:00:00 Allergies, Adverse Reactions, Alerts Allergy Name Allergy Type Status Severity Reaction(s) Onset Date Inactive Date Treating Clinician Comments Source PREDNISO NE DRUG INGREDI Active Other-Cmnt 02-26 00:00: 00 [facility] Predniso ne Propensi ty to adverse reaction s Active Other - See comments 02-26 00:00: 00 TIA [facility] NO KNOWN ALLERGIE S Drug Class Active [facility] Social History Social Habit Start Date Stop Date Quantity Comments Source History of tobacco use Cigarette Smoker [facility] Tobacco use and exposure 2025-02-26 00:00:00 2025-02-26 00:00:00 Smokeless tobacco non-user [facility] Tobacco Comment 2025-02-26 00:00:00 2025-02-26 00:00:00 Stated that he has smoked most of his life.Quit for 10 years. Started back up in 2002. [facility] History of Social function 2023-07-25 00:00:00 2023-07-25 00:00:00 [facility] Exposure to SARS-CoV-2 (event) 2023-01-11 00:00:00 2023-01-21 11:07:00 Not sure [facility] Sex assigned at 1955 00:00:00 1955 00:00:00 [facility] Smoking Status Start Date Stop Date Source Smokes tobacco daily 2025-02-26 00:00:00 [facility] Ex-smoker 2023-07-25 00:00:00 2023-07-25 00[facility]00[facility]00 [facility] Medications Ordered Medication Name Filled Medication Name Start Date Stop Date Current Medication? Ordering Clinician Indication Dosage Frequency Signature (SIG) Comments Components Source lisinopril 10 mg tablet 02-26 15:14: 20 Yes 10mg Take 1 tablet by mouth in the morning. [facility] meloxicam 15 mg tablet 02-26 15:14: 20 Yes 15mg Take 1 tablet by mouth in the morning. [facility] amLODIPine 5 mg tablet 02-26 15:14: 20 Yes 5mg Take 1 tablet by mouth in the morning. [facility] losartan 50 mg tablet 2022-08 10:40: 04 Yes 50mg Take 1 tablet by mouth in the morning and 1 tablet in the evening. [facility] amLODIPine 5 mg tablet 2022-08 10:40: 04 Yes 5mg Take 1 tablet by mouth in the morning. [facility] losartan 50 mg tablet 01-21 11:20: 13 Yes 50mg Take 1 tablet by mouth in the morning. [facility] amLODIPine 5 mg tablet 01-21 11:20: 13 Yes 5mg Take 1 tablet by mouth in the morning. [facility] TURMERIC ORAL 01-21 11:15: 40 Yes Take by mouth. [facility] lisinopril 10 mg tablet 01-21 11:15: 40 Yes 10mg Take 1 tablet by mouth in the morning. [facility] meloxicam 15 mg tablet 01-21 11:15: 40 Yes 15mg Take 1 tablet by mouth in the morning. [facility] levoFLOXaci n 500 mg tablet 01-21 00:00: 00 07-25 00:00 :00 No [id number] 500mg Take 1 tablet by mouth every 24 (twenty-fo ur) hours. [facility] lisinopril 10 mg tablet 05-09 12:16: 12 Yes 10mg Take 10 mg by mouth daily. [facility] meloxicam 15 mg tablet 05-09 12:16: 12 Yes 15mg Take 15 mg by mouth daily. [facility] venom-wasp (WASP VENOM INJECTION) 05-09 12:16: 12 Yes Indication s: wasp sting [facility] Vital Signs Vital Name Observation Time Observation Value Comments S ource Systolic blood pressure 2025-02-26 20:17:00 135 mm[Hg] [facility] Diastolic blood pressure 2025-02-26 20:17:00 91 mm[Hg] [facility] Heart rate 2025-02-26 20:17:00 84 /min [facility] Body height 2025-02-26 20:17:00 194.3 cm [facility] Body weight 2025-02-26 20:17:00 98.431 kg [facility] BMI 2025-02-26 20:17:00 26.07 kg/m2 [facility] Oxygen saturation in Arterial blood by Pulse oximetry 2025-02-26 20:17:00 94 /min [facility] Systolic blood pressure 2023-07-25 16:36:00 125 mm[Hg] [facility] Diastolic blood pressure 2023-07-25 16:36:00 79 mm[Hg] [facility] Heart rate 2023-07-25 16:36:00 80 /min [facility] Respiratory rate 2023-07-25 16:36:00 18 /min [facility] Body height 2023-07-25 16:36:00 193 cm [facility] Body weight 2023-07-25 16:36:00 109.77 kg [facility] BMI 2023-07-25 16:36:00 29.46 kg/m2 [facility] Oxygen saturation in Arterial blood by Pulse oximetry 2023-07-25 16:36:00 93 /min [facility] BMI 2023-01-21 16:16:00 27.54 kg/m2 [facility] Oxygen saturation in Arterial blood by Pulse oximetry 2023-01-21 16:16:00 95 /min [facility] Systolic blood pressure 2023-01-21 16:16:00 114 mm[Hg] [facility] Diastolic blood pressure 2023-01-21 16:16:00 79 mm[Hg] [facility] Heart rate 2023-01-21 16:16:00 79 /min [facility] Respiratory rate 2023-01-21 16:16:00 18 /min [facility] Body height 2023-01-21 16:16:00 194.3 cm [facility] Body weight 2023-01-21 16:16:00 103.987 kg [facility] Procedures Procedure Date / Time Performed Performing Clinicia n Source SONI,POST-VOID RES,US,NON-IMAGING 2025-02-26 00:00:00 Kojo Quintana [facility] CONSENT/REFUSAL FOR DIAGNOSIS AND TREATMENT 2023-01-21 16:08:20 Doctor Unassigned, [place] [facility] REFERRAL- REQUEST/RESPONSE 2022-12-30 05:01:00 Doctor Unassigned, [place] [facility] EXTERNAL PROVIDER - ADC REFERRAL 2022-11-22 05:01:00 Doctor Unassigned, [place] [facility] Encounters Start Date/Time End Date/Time Encounter Type Admission Type Attending [facility] Facility Care Department Encounter ID Source 2025-02-26 15:30:00 2025-02-26 16:01:08 Office Visit KOJO BENNETT [facility] [id number] [id number] [id number] [id number] [facility] 2025-02-26 15:30:00 2025-02-26 15:30:00 Outpatient R KOJO QUIN[facility]NA [facility] [id number] [facility] 2023-07-25 10:30:00 2023-07-25 11:08:53 [facility] [id number] [facility] 2023-07-25 10:30:00 2023-07-25 11:08:53 Office Visit Mojgan Bender [facility] [id number] 350.1.13.10 [id number] [id number] [facility] 2023-01-21 11:30:00 2023-01-21 11:50:07 Office Visit Mojgan Bender [facility] [id number] 350.1.13.10 4.2.7.2.686 [id number] [facility] 2023-01-21 11:30:00 2023-01-21 11:50:07 Outpatient R MOJGAN BENDER [facility] [id number] [facility] 2023-01-21 00:00:00 2023-01-21 00:00:00 Orders Only Doctor Unassigned, [place] [facility] [id number] 350.1.13.10 4.2.7.2.686 [id number] [facility] 2022-12-30 00:00:00 2022-12-30 00:00:00 Orders Only Doctor Unassigned, [place] [facility] [id number] 350.1.13.10 4.2.7.2.686 [id number] [facility] 2022-11-22 00:00:00 2022-11-22 00:00:00 Orders Only Doctor Unassigned, [place] [facility] [id number] 350.1.13.10 4.2.7.2.686 [id number] [facility] 2019-05-09 08:19:00 2019-05-09 12:10:00 Hospital Encounter Juan R Cooper [facility] [id number] 350.1.13.10 4.2.7.2.686 [id number] 2019-05-09 09:43:00 2019-05-09 10:57:00 Anesthesia Bala Zamorano [facility] 1.2.840.114 350.1.13.10 4.2.7.2.686 [id number] 2019-05-09 00:00:00 2019-05-09 00:00:00 Orders Only Doctor Unassigned, [place] [facility] [id number] 350.1.13.10 [id number] [id number] Results Test Description Test Time Test Comments Results Result Co mments Source [facility]
[2025-04-12] MEDS ORDERED: KETOROLAC 30 MG/ML INJ ONE (08:57)
[2025-04-12] MEDS ORDERED: ACETAMINOPHEN 500 MG TAB ONE (08:57)
--- NOTE | 2025-04-12 09:03 | EDPHYS ---
Physician Documentation [facility] Name: Hamilton Phan Age: 69 yrs Sex: Male : 1955 Arrival Date: 04/12/2025 Time: 08:42 Bed IW2 Private MD: ED Physician Matheus Fajardo HPI: 04/12 08:55 This 69 yrs old Male presents to ER via Ambulatory with complaints of dr5 Shoulder Pain - left, Arm Pain - left, Hand Pain - left. 08:55 left shoulder. Onset: The symptoms/episode began/occurred 5 day(s) ago. Patient is here dr5 for continued left shoulder pain, left elbow, and left hand pain. Patient was here prior and got medications and left before getting his prescriptions. Patient denies trauma / fall. Patient reports that his pain improved after medication and is slowly improving over time. Patient reports he has not made an appointment with Dr. Bolton (PCP) yet, but will call for follow up. Patient also reports redness / pain to left hand.. Historical: - Allergies: 08:59 Bees; jl7 08:59 Prednisone; jl7 08:59 Wasps; jl7 - Home Meds: 08:59 hydrochlorothiazide 25 mg Oral tab 1 tab once daily [Active]; losartan 100 mg Oral tab jl7 1 tab once daily [Active]; - PMHx: 08:59 Hep C- treat and cured; Hypertension; Hypothyroidism; jl7 - PSHx: 08:59 Appendectomy; back sx; jl7 - Immunization history:: Adult Immunizations unknown. - Infectious Disease History:: Denies. - Social history:: Smoking status: unknown. ROS: 09:11 Constitutional: as per hpi dr5 Exam: 09:11 Constitutional: This is a well developed, well nourished patient who is awake, alert, dr5 and in no acute distress. Head/Face: Normocephalic, atraumatic. Eyes: Pupils equal round and reactive to light, extra-ocular motions intact. Lids and lashes normal. Conjunctiva and sclera are non-icteric and not injected. Cornea within normal limits. Periorbital areas with no swelling, redness, or edema. Chest/axilla: Normal chest wall appearance and motion. Nontender with no deformity. No lesions are appreciated. Cardiovascular: Regular rate and rhythm with a normal S1 and S2. Normal PMI, no JVD. No pulse deficits. Respiratory: Lungs have equal breath sounds bilaterally, clear to auscultation. No rales, rhonchi or wheezes noted. No increased work of breathing, no retractions or nasal flaring. Back: No spinal tenderness. No costovertebral tenderness. Full range of motion. Skin: Warm, dry with normal turgor. Normal color with no rashes, no lesions, and no evidence of cellulitis. Mild redness noted to PIP of fifth digit and rash - possibly impetigo. MS/ Extremity: Pulses equal, no cyanosis. Neurovascular intact. Full, normal range of motion. Neuro: Awake and alert, GCS 15, oriented to person, place, time, and situation. Cranial nerves II-XII grossly intact. Motor strength 5/5 in all extremities. Sensory grossly intact. Cerebellar exam normal. Normal gait. Vital Signs: 08:56 BP 168 / 87; Pulse 76; Resp 15; Temp 97; Pulse Ox 99% ; Weight 99.79 kg; Height 6 ft. 4 jl7 in. ; Pain 7/10; 08:56 Body Mass Index 26.78 (99.79 kg, 193.04 cm) jl7 08:56 Pain Scale: Adult jl7 MDM: 08:47 Medical Screening Exam initiated dr5 09:11 Differential diagnosis: Anterior dislocation with fracture, DJD, tendonitis. Data dr5 reviewed: vital signs, nurses notes, old medical records, Reviewed medical record from previous visit and reviewed shoulder and elbow x-rays (No acute abnormality on both). Consideration of Admission/Observation Escalation of care including admission/observation considered. Escalation considered if patient found to not be able to move arm or had anterior / posterior dislocation.. I considered the following discharge prescriptions or medication management in the emergency department I discussed and recommended Over The Counter medications, Medications were administered in the Emergency Department. See MAR. Test considered but Not performed: X-ray: X-ray considered but just had x-rays completed on last visit.. Care significantly affected by the following chronic conditions: HTN, Hypothyroidism, Hep-C. Care significantly affected by the following Social Determinants of Health: Poor access to healthcare and/or lack of insurance, Poor access to transportation, Problems related to employment. Counseling: I had a detailed discussion with the patient and/or guardian regarding the historical points, exam findings, and any diagnostic results supporting the discharge/admit diagnosis, the presence of at least one elevated blood pressure reading (>120/80) during this emergency department visit, the need for outpatient follow up, for definitive care, a family practitioner, a orthopedic surgeon, to return to the emergency department if symptoms worsen or persist or if there are any questions or concerns that arise at home. Medication response: Toradol markedly relieved the patient's pain. Special discussion: I have referred the patient to see his PCP for further evaluation of high blood pressure. I discussed with the patient/guardian in detail that at this point there is no indication for admission to the hospital. It is understood, however, that if the symptoms persist or worsen the patient needs to return immediately for re-evaluation. Based on the history and exam findings, there is no indication for further emergent testing or inpatient evaluation. I discussed with the patient/guardian the need to see the orthopedic surgeon for further evaluation of the symptoms. ED course: Recommended patient start taking cyclobenzaprine when he gets home. Will not give in ER as patient is driving. Will prescribe cream for possible impetigo of left hand. Will also give patient muscle relaxer. Recommended patient follow up with orthopedics and/or family practice. All questions answered. Strict ER precautions given.. Administered Medications: 09:10 Drug: Ketorolac IM 30 mg IM once Route: IM; Site: left vastus lateralis; nh2 09:11 Follow up: Response: Medication administered at discharge. nh2 09:12 Drug: Acetaminophen PO 1000 mg PO once Route: PO; jl7 09:12 Follow up: Response: Medication administered at discharge. jl7 Disposition Summary: 04/12/25 09:02 Discharge Ordered Notes: Location: Home dr5 Condition: Stable dr5 Diagnosis - Pain in left shoulder dr5 Followup: dr5 - With: Emergency Department - When: As needed - Reason: Worsening of condition Followup: dr5 - With: Private Physician - When: 1 - 2 days - Reason: Recheck today's complaints, Continuance of care, Re-evaluation by your physician Discharge Instructions: - Discharge Summary Sheet dr5 - Rash, Adult dr5 - Shoulder Pain dr5 Forms: - Medication Reconciliation Form dr5 - Antibiotic Education dr5 - Patient Portal Instructions dr5 - Leadership Thank You Letter dr5 Prescriptions: - mupirocin 2 % Topical ointment - apply 1 application TOPICAL route 2 times per day; 1 application; Refills: 0, dr5 Product Selection Permitted - Ibuprofen 800 mg Oral Tablet - take 1 tablet ORAL route every 12 hours As needed take with food; 20 tablet; dr5 Refills: 0, Product Selection Permitted - Cyclobenzaprine 10 mg Oral Tablet - take 1 tablet ORAL route every 8 hours As needed; 30 tablet; Refills: 0, dr5 Product Selection Permitted Addendum: 04/16/2025 14:03 Co-signature as Attending Physician, Matheus Fajardo MD I agree with the assessment and c ewing plan of care. Signatures: Matheus Fajardo MD MD cha Leal, Jahala RN RN jl7 Toro Bradford Jr, RN RN nh2 Fausto Garcia, FILM AND VIDEO GRAPHICS DESIGNER-C FILM AND VIDEO GRAPHICS DESIGNER-Cdr5 Corrections: (The following items were deleted from the chart) 04/12 09:12 08:55 Patient is here for continued left shoulder pain, left elbow, and left hand pain. dr5 Patient was here prior and got medications and left before getting his prescriptions. Patient denies trauma / fall.. dr5
--- NOTE | 2025-04-12 09:03 | ER ---
Nurse's Notes [facility] Name: Hamilton Phan Age: 69 yrs Sex: Male : 1955 Arrival Date: 04/12/2025 Time: 08:42 Bed IW2 Private MD: Diagnosis: Pain in left shoulder Presentation: 04/12 08:56 Chief complaint: Patient states: Left shoulder, elbow, hand pain x 1 week. Coronavirus jl7 screen: At this time, the client does not indicate any symptoms associated with coronavirus-19. Ebola Screen: No symptoms or risks identified at this time. Initial Sepsis Screen: Does the patient meet any 2 criteria? No. Patient's initial sepsis screen is negative. Does the patient have a suspected source of infection? No. Patient's initial sepsis screen is negative. Risk Assessment: Do you want to hurt yourself or someone else? Patient reports no desire to harm self or others. Onset of symptoms is unknown. 08:56 Method Of Arrival: Ambulatory jl7 08:56 Acuity: RONA 3 jl7 Triage Assessment: 08:59 General: Appears in no apparent distress. uncomfortable, Behavior is calm, cooperative, jl7 appropriate for age. Pain: Complains of pain in left hand and left arm Pain currently is 5 out of 10 on a pain scale. Historical: - Allergies: 08:59 Bees; jl7 08:59 Prednisone; jl7 08:59 Wasps; jl7 - Home Meds: 08:59 hydrochlorothiazide 25 mg Oral tab 1 tab once daily [Active]; losartan 100 mg Oral tab jl7 1 tab once daily [Active]; - PMHx: 08:59 Hep C- treat and cured; Hypertension; Hypothyroidism; jl7 - PSHx: 08:59 Appendectomy; back sx; jl7 - Immunization history:: Adult Immunizations unknown. - Infectious Disease History:: Denies. - Social history:: Smoking status: unknown. Screenin:11 [facility] ED Fall Risk Assessment (Adult) History of falling in the last 3 months, jl7 including since admission No falls in past 3 months (0 pts) Confusion or Disorientation No (0 pts) Intoxicated or Sedated No (0 pts) Impaired Gait No (0 pts) Mobility Assist Device Used No (0 pt) Altered Elimination No (0 pt) Score/Fall Risk Level 0 - 2 = Low Risk Oriented to surroundings, Maintained a safe environment. Abuse screen: Denies threats or abuse. Denies injuries from another. Nutritional screening: No deficits noted. Tuberculosis screening: No symptoms or risk factors identified. Vital Signs: 08:56 BP 168 / 87; Pulse 76; Resp 15; Temp 97; Pulse Ox 99% ; Weight 99.79 kg; Height 6 ft. 4 jl7 in. ; Pain 7/10; 08:56 Body Mass Index 26.78 (99.79 kg, 193.04 cm) jl7 08:56 Pain Scale: Adult jl7 ED Course: 08:45 Patient arrived in ED. im 08:47 Fausto Garcia FNP-C is [facility] 08:47 Matheus Fajardo MD is Attending Physician. dr5 08:59 Triage completed. jl7 08:59 Arm band placed on right wrist. jl7 09:11 Diamond Lira RN is Primary Nurse. jl7 09:12 Patient has correct armband on for positive identification. Provided Education on: jl7 discharge. 09:12 No provider procedures requiring assistance completed. Patient did not have IV access jl7 during this emergency room visit. Administered Medications: 09:10 Drug: Ketorolac IM 30 mg IM once Route: IM; Site: left vastus lateralis; nh2 09:11 Follow up: Response: Medication administered at discharge. nh2 09:12 Drug: Acetaminophen PO 1000 mg PO once Route: PO; jl7 09:12 Follow up: Response: Medication administered at discharge. jl7 Medication: 09:12 VIS not applicable for this client. jl7 Outcome: 09:02 Discharge ordered by . dr5 09:12 Discharged to home ambulatory, jl7 09:12 Condition: stable 09:12 Discharge instructions given to patient, Instructed on discharge instructions, follow up and referral plans. medication usage, Demonstrated understanding of instructions, follow-up care, medications, Prescriptions given X 3, 09:13 Patient left the ED. jl7 Signatures: Diamond Lira RN RN jl7 Sylvia Chaudhry Jr, Noel RN RN nh2 Fausto Garcia FNP-C CELL MANAGER-Cdr5
[2025-04-12 11:03] VITALS: BP 168/87; TEMP 97; O2SAT 99
== END 2025-04-12 09:13 | disposition home or self-care (01) ==
LOC: ER 08:42
DX: M25.512 Pain in left shoulder (principal)
CPT/HCPCS: 96372; 99284